=== PATIENT | female | born 1955 | race Caucasian/White ===

== ENCOUNTER 2017-09-29 06:12 | Emergency (ER) | payer OTHER ==
[2017-09-29] MEDS ORDERED: IPRATROPIUM BROM 0.5MG/2.5ML ONE (07:02)
[2017-09-29] MEDS ORDERED: ALBUTEROL 2.5 MG/3 ML NEB SOL ONE ×2 (07:02→08:19)
--- NOTE | 2017-09-29 08:40 | ER ---
Nurse's Notes [facility] Name: Cynthia Piper Age: 62 yrs Sex: Female : 1955 Arrival Date: 09/29/2017 Time: 06:14 Bed 15 Private MD: Diagnosis: Acute bronchitis;Acute upper respiratory infection, unspecified Presentation: 09/29 06:19 Presenting complaint: Patient states: "I have been sick since and it has just tc3 gotten worse. I have had congestion, cough and difficulty breathing. I saw my doctor on and she put me on Levaquin, gave me a shot of Decadron and gave me a RX for Medrol Dose Pack but I cannot take that as it turns me red, I feel like I am on fire and it gives me a bad headache". Transition of care: patient was not received from another setting of care. Onset of symptoms was September 25, 2017. Care prior to arrival: see triage. 06:19 Method Of Arrival: Ambulatory tc3 06:19 Acuity: MILIND 3 tc3 Triage Assessment: 06:25 General: Appears in no apparent distress. well groomed, Behavior is calm, cooperative, tc3 appropriate for age. Pain: Complains of pain in chest Pain currently is 3 out of 10 on a pain scale. Respiratory: Reports shortness of breath at rest on exertion cough that is non-productive, pain with cough Pain is 3 out of 10 on a pain scale. Historical: - Allergies: 06:31 Medrol; tc3 - Home Meds: 06:31 pantoprazole oral oral [Active]; Cholesterol Pill [Active]; [place] 10-325 mg Oral tab 1 tc3 tab twice a day [Active]; - PMHx: 06:31 Asthma; Chronic Back Pain; High Cholesterol; tc3 - PSHx: 06:31 Appendectomy; Hysterectomy; tc3 - Immunization history:: Pneumococcal vaccine is not up to date, Flu vaccine is up to date. - Social history:: Smoking status: Patient/guardian denies using tobacco. Screenin:33 Abuse screen: Denies threats or abuse. Denies injuries from another. Nutritional tc3 screening: No deficits noted. Tuberculosis screening: No symptoms or risk factors identified. Fall Risk None identified. Assessment: 06:34 General: Appears distressed, uncomfortable, Behavior is cooperative, restless. Pain: ar4 Complains of pain in chest and head Pain does not radiate. Pain currently is 3 out of 10 on a pain scale. Quality of pain is described as pressure, Pain began 2-3 days ago. Is continuous, Alleviated by nothing. Aggravated by Pt. reports, "When I cough it makes it worse; /10." Noted to be crying. Neuro: Level of Consciousness is awake, alert, obeys commands, Oriented to person, place, time, situation, Twister Operator are equal bilaterally Moves all extremities. Gait is steady, Speech is normal, Facial symmetry appears normal, Pupils are PERRLA. Cardiovascular: Reports shortness of breath, Denies chest pain, Heart tones S1 S2 present Capillary refill < 3 seconds is brisk in right fingers Patient's skin is warm and dry. Pulses are all present. Rhythm is regular Chest pain is denied. Respiratory: Reports shortness of breath at rest on exertion since last cough that is non-productive, labored breathing since Pt. reports, "This all started last ." pain with cough since last pain with respiration since Pt. reports, "It all started last ." Airway is patent Trachea midline Respiratory effort is even, labored, Respiratory pattern is regular, symmetrical, Breath sounds with wheezes bilaterally. Onset: The symptoms/episode began/occurred Pt. reports, "This all started last and has gotten worse.", the patient has moderate shortness of breath. GI: Abdomen is round non-distended, Bowel sounds present X 4 quads. Abd is soft and non tender X 4 quads. Patient currently denies diarrhea, nausea, vomiting. : No signs and/or symptoms were reported regarding the genitourinary system. EENT: Nares are clear with drainage noted Oral mucosa is moist. Throat is reddened bilaterally with gag reflex present, Reports nasal congestion since Pt. reports, "The drainage is clear and started last .". Derm: Skin is intact, is healthy with good turgor, Skin is dry, Skin is pink, warm \\T\\ dry. Skin temperature is warm. Musculoskeletal: No signs and/or symptoms reported regarding the musculoskeletal system. 07:15 Reassessment: Patient appears in no apparent distress at this time. Patient and/or tw2 family updated on plan of care and expected duration. Pain level reassessed. Patient is alert, oriented x 3, equal unlabored respirations, skin warm/dry/pink. breathing treatment finished at this time. pt still with b/l wheezing noted, pt states "dago had to stop and blow my nose twice". Cardiovascular: Denies chest pain, shortness of breath, Heart tones S1 S2. Respiratory: Airway is patent Respiratory effort is even, unlabored, Respiratory pattern is regular, symmetrical, Breath sounds with wheezes bilaterally. 08:17 Reassessment: Patient appears in no apparent distress at this time. Patient and/or tw2 family updated on plan of care and expected duration. Pain level reassessed. Patient is alert, oriented x 3, equal unlabored respirations, skin warm/dry/pink. 08:58 Reassessment: Patient appears in no apparent distress at this time. No changes from tw2 previously documented assessment. Patient and/or family updated on plan of care and expected duration. Pain level reassessed. Patient is alert, oriented x 3, equal unlabored respirations, skin warm/dry/pink. Vital Signs: 06:23 BP 140 / 92; Pulse 86; Resp 20; Temp 98.2; Pulse Ox 98% ; Weight 71.67 kg; Height 5 ft. tc3 4 in. (162.56 cm); Pain 3/10; 06:54 BP 126 / 88; Pulse 87; Resp 20; Pulse Ox 100% on 7% Nebulizer Mask; tc3 07:25 BP 131 / 76; Pulse 95; Resp 19; Pulse Ox 99% on R/A; tw2 08:16 BP 136 / 84; Pulse 104; Resp 19; Pulse Ox 100% on R/A; tw2 08:57 BP 137 / 87; Pulse 106; Resp 17; Pulse Ox 98% on R/A; tw2 06:23 Body Mass Index 27.12 (71.67 kg, 162.56 cm) tc3 ED Course: 06:14 Patient arrived in ED. ds1 06:25 Latanya Oneill, ADOLFO is Primary Nurse. tc3 06:26 Tremayne Valero PA is PHCP. jr8 06:27 Jose Blanchard MD is Attending Physician. jr8 06:28 Triage completed. tc3 06:33 Arm band placed on. tc3 06:34 Patient has correct armband on for positive identification. Placed in gown. Bed in low tc3 position. Call light in reach. Side rails up X 1. Adult w/ patient. Pulse ox on. NIBP on. Verbal reassurance given. 06:50 Xray in room. tc3 06:52 X-ray completed. Portable x-ray completed in exam room. Patient tolerated procedure jb2 well. 07:03 Report given to ADOLFO Cabral. ar4 07:23 Primary Nurse role handed off by Latanya Oneill RN tw2 07:23 Marianna Angeles RN is Primary Nurse. tw2 07:24 No provider procedures requiring assistance completed. tw2 08:07 Attending Physician role handed off by Jose Blanchard MD jr8 08:07 Shayan Farfan MD is Attending Physician. jr8 09:01 Patient did not have IV access during this emergency room visit. tw2 Administered Medications: 06:44 Drug: Albuterol - atroVENT (3:1) (2.5 mg - 0.5 mg) 3 ml Route: Nebulizer; tc3 08:03 Follow up: Response: No adverse reaction; Wheezing diminished tw2 08:00 Drug: Albuterol 2.5 mg Route: Inhalation; tw2 08:36 Follow up: Response: No adverse reaction; Wheezing diminished tw2 Outcome: 06:47 Attestation : I concur with the documentation of STEVE Gardner. tc3 08:39 Discharge ordered by . jr8 09:01 Discharged to home ambulatory, with significant other. tw2 09:01 Condition: stable 09:01 Discharge instructions given to patient, significant other, Instructed on discharge instructions, follow up and referral plans. medication usage, Demonstrated understanding of instructions, follow-up care, medications, Prescriptions given X 3. 09:02 Patient left the ED. tw2 Signatures: Fidel Rahman jb2 Sujey Ramon Josh, PA PA jr8 Marianna Angeles RN RN tw2 Latanya Oneill RN RN tc3 Patricia Moses arTrue
--- NOTE | 2017-09-29 08:40 | EDPHYS ---
Physician Documentation [facility] Name: Cynthia Piper Age: 62 yrs Sex: Female : 1955 Arrival Date: 09/29/2017 Time: 06:14 Bed 15 Private MD: ED Physician Shayan Farfan HPI: 09/29 07:23 This 62 yrs old Female presents to ER via Ambulatory with complaints of jr8 Cough, Congestion, Breathing Difficulty. 07:23 The patient or guardian reports cough, that is intermittent, described as moderate, jr8 with no sputum. The patient or guardian reports difficulty breathing. Onset: The symptoms/episode began/occurred gradually, 4 day(s) ago. Severity of symptoms: At their worst the symptoms were moderate, in the emergency department the symptoms are unchanged. Modifying factors: The symptoms are alleviated by nothing, the symptoms are aggravated by exertion. Associated signs and symptoms: Pertinent positives: rhinorrhea, sore throat. The patient has not experienced similar symptoms in the past. The patient has been recently seen by a physician:. Patient stated that she started with cough and shortness of breath this past . Saw PCP and given Levaquin and Decadron. Stated that she continues to have problems . Historical: - Allergies: 06:31 Medrol; tc3 - Home Meds: 06:31 pantoprazole oral oral [Active]; Cholesterol Pill [Active]; [place] 10-325 mg Oral tab 1 tc3 tab twice a day [Active]; - PMHx: 06:31 Asthma; Chronic Back Pain; High Cholesterol; tc3 - PSHx: 06:31 Appendectomy; Hysterectomy; tc3 - Immunization history:: Pneumococcal vaccine is not up to date, Flu vaccine is up to date. - Social history:: Smoking status: Patient/guardian denies using tobacco. ROS: 07:23 Eyes: Negative for injury, pain, redness, and discharge, Neck: Negative for injury, jr8 pain, and swelling, Cardiovascular: Negative for chest pain, palpitations, and edema, Abdomen/GI: Negative for abdominal pain, nausea, vomiting, diarrhea, and constipation, Back: Negative for injury and pain, MS/Extremity: Negative for injury and deformity, Skin: Negative for injury, rash, and discoloration, Neuro: Negative for headache, weakness, numbness, tingling, and seizure. 07:23 ENT: Positive for rhinorrhea, sinus congestion, sore throat. 07:23 Respiratory: Positive for cough, with no reported sputum, shortness of breath, wheezing. Exam: 07:23 Eyes: Pupils equal round and reactive to light, extra-ocular motions intact. Lids and jr8 lashes normal. Conjunctiva and sclera are non-icteric and not injected. Cornea within normal limits. Periorbital areas with no swelling, redness, or edema. Neck: Trachea midline, no thyromegaly or masses palpated, and no cervical lymphadenopathy. Supple, full range of motion without nuchal rigidity, or vertebral point tenderness. No Meningismus. Cardiovascular: Regular rate and rhythm with a normal S1 and S2. No gallops, murmurs, or rubs. Normal PMI, no JVD. No pulse deficits. Abdomen/GI: Soft, non-tender, with normal bowel sounds. No distension or tympany. No guarding or rebound. No evidence of tenderness throughout. Back: No spinal tenderness. No costovertebral tenderness. Full range of motion. Skin: Warm, dry with normal turgor. Normal color with no rashes, no lesions, and no evidence of cellulitis. MS/ Extremity: Pulses equal, no cyanosis. Neurovascular intact. Full, normal range of motion. Neuro: Awake and alert, GCS 15, oriented to person, place, time, and situation. Cranial nerves II-XII grossly intact. Motor strength 5/5 in all extremities. Sensory grossly intact. Cerebellar exam normal. Normal gait. 07:23 ENT: Exam is negative for earache, ear discharge, TM abnormalities, nasal discharge, Nose: Nasal mucosa: erythematous, moist, Turbinates: are swollen bilaterally, Mouth: Lips: moist, Oral mucosa: pink and intact, moist, Gums: pink, Tongue: is moist, Posterior pharynx: Airway: patent, Tonsils: are normal in appearance, no enlargement, no erythema, no exudate, no ulcerations, Uvula: midline, non-edematous, no erythema, swelling, is not appreciated, erythema, is not appreciated. 07:23 Respiratory: the patient does not display signs of respiratory distress, Respirations: normal, symetrical, no use of accessory muscles, no grunting, no evidence of nasal flaring, no prolonged exhalations, no pursed lip breathing, no retractions, no shallow respirations, no splinting, no tachypnea, Breath sounds: wheezing: expiratory that is moderate, is heard diffusely. Vital Signs: 06:23 BP 140 / 92; Pulse 86; Resp 20; Temp 98.2; Pulse Ox 98% ; Weight 71.67 kg; Height 5 ft. tc3 4 in. (162.56 cm); Pain 3/10; 06:54 BP 126 / 88; Pulse 87; Resp 20; Pulse Ox 100% on 7% Nebulizer Mask; tc3 07:25 BP 131 / 76; Pulse 95; Resp 19; Pulse Ox 99% on R/A; tw2 08:16 BP 136 / 84; Pulse 104; Resp 19; Pulse Ox 100% on R/A; tw2 08:57 BP 137 / 87; Pulse 106; Resp 17; Pulse Ox 98% on R/A; tw2 06:23 Body Mass Index 27.12 (71.67 kg, 162.56 cm) tc3 MDM: 06:27 Patient medically screened. jr8 08:36 Data reviewed: vital signs, nurses notes, radiologic studies, plain films, and as a jr8 result, I will discharge patient. Data interpreted: Pulse oximetry: on room air is 100 %. Interpretation: normal. Counseling: I had a detailed discussion with the patient and/or guardian regarding: the historical points, exam findings, and any diagnostic results supporting the discharge/admit diagnosis, radiology results, the need for outpatient follow up, a family practitioner, to return to the emergency department if symptoms worsen or persist or if there are any questions or concerns that arise at home. Response to treatment: the patient's symptoms have markedly improved after treatment, and as a result, I will discharge patient. 08:38 ED course: Patient cannot take oral steroids. Will substitute with inhaled steroid for jr8 time being. To f/u with PCP in a few days to insure improvement . 09/29 06:40 Order name: XRAY Chest (1 view) jr8 09/29 08:53 Order name: RAD; Complete Time: 08:54 EDMS Administered Medications: 06:44 Drug: Albuterol - atroVENT (3:1) (2.5 mg - 0.5 mg) 3 ml Route: Nebulizer; tc3 08:03 Follow up: Response: No adverse reaction; Wheezing diminished tw2 08:00 Drug: Albuterol 2.5 mg Route: Inhalation; tw 08:36 Follow up: Response: No adverse reaction; Wheezing diminished tw2 Disposition: 11:00 Co-signature as Attending Physician, Shayan Farfan MD I agree with the assessment and gerry plan of care. Disposition: 09/29/17 08:39 Discharged to Home. Impression: Acute bronchitis, Acute upper respiratory infection, unspecified. - Condition is Stable. - Discharge Instructions: Acute Bronchitis, Upper Respiratory Infection, Adult. - Prescriptions for Albuterol Sulfate 2.5 mg /3 mL (0.083 %) Inhalation Solution for Nebulization - inhale 1 unit by NEBULIZATION route every 8 hours As needed; 1 box. Flovent HFA 110 mcg/actuation Inhalation HFA aerosol inhaler - inhale 2 puff by INHALATION route 2 times per day; 1 Inhaler. - Medication Reconciliation Form, Thank You Letter, Antibiotic Education, Prescription Opioid Use form. - Follow up: Private Physician; When: 2 - 3 days; Reason: If symptoms return, Recheck today's complaints, Continuance of care, Re-evaluation by your physician. - Problem is new. - Symptoms have improved. Signatures: Dispatcher [employer] Shayan Russell MD MD cha Roszak, Josh, PA PA jr8 Marianna Angeles RN RN tw2 Latanya Oneill RN RN tc3
--- NOTE | 2017-09-29 08:53 | RAD REPORT ---
EXAM DESCRIPTION: RAD - Chest Single View - 09/29/2017 6:58 am CLINICAL HISTORY: Cough and congestion. COMPARISON: 08/16/2013 FINDINGS: Portable technique limits examination quality. The lungs are grossly clear. The heart is normal in size. No displaced fractures. IMPRESSION: No acute intrathoracic process suspected.
[2017-09-29 09:07] VITALS: TEMP 98.2
[2017-09-29 09:14] VITALS: BP 137/87; O2SAT 98
== END 2017-09-29 09:02 | disposition home or self-care (01) ==
LOC: ER 06:12
DX: J20.9 Acute bronchitis, unspecified (principal); J06.9 Acute upper respiratory infection, unspecified; E78.00 Pure hypercholesterolemia, unspecified; Z88.8 Allergy status to other drugs, medicaments and biological substances
CPT/HCPCS: 71045; 94640; 99284

== ENCOUNTER 2018-08-23 08:33 | Emergency (ER) | payer OTHER ==
[2018-08-23] MEDS ORDERED: LEVALBUTEROL 1.25 MG/3 ML NEB ONE ×2 (08:59→09:48)
--- NOTE | 2018-08-23 09:15 | RAD REPORT ---
EXAM DESCRIPTION: RAD - Chest Pa And Lat (2 Views) - 08/23/2018 9:04 am CLINICAL HISTORY: Dyspnea, cough and congestion COMPARISON: September 2017 TECHNIQUE: PA and lateral views of the chest were obtained. FINDINGS: The lungs are clear of a focal process. Interstitial markings are prominent but not clearl y different. Heart size is normal and central vasculature is within normal limits. No pleural effu corine or pneumothorax seen. No acute bony finding noted. No aortic abnormality. IMPRESSION: No acute cardiopulmonary process. No significant interval change.
[2018-08-23] MEDS ORDERED: DEXAMETHASONE 4 MG/ML VIAL ONE (09:27)
--- NOTE | 2018-08-23 10:22 | ER ---
Nurse's Notes [facility] Name: Cynthia Piper Age: 63 yrs Sex: Female : 1955 Arrival Date: 08/23/2018 Time: 08:36 Bed 13 Private MD: Ambrocio Shore R Diagnosis: Influenza due to identified novel influenza A virus;Cough Presentation: 08/23 08:43 Presenting complaint: Patient states: hacking cough, congestion and shortness of breath ss that is worse on exertion x 1 week. Transition of care: patient was not received from another setting of care. Onset of symptoms was August 16, 2018. Risk Assessment: Do you want to hurt yourself or someone else? Patient reports no desire to harm self or others. Initial Sepsis Screen: Does the patient meet any 2 criteria? No. Patient's initial sepsis screen is negative. Does the patient have a suspected source of infection? No. Patient's initial sepsis screen is negative. Care prior to arrival: None. 08:43 Method Of Arrival: Ambulatory ss 08:43 Acuity: MILIND 3 ss Triage Assessment: 08:40 Respiratory: the patient has moderate shortness of breath. rb1 Historical: - Allergies: 08:45 No Known Allergies; ss - Home Meds: 08:40 cholesterol pill [Active]; [place] 10-325 mg Oral tab 1 tab twice a day [Active]; rb1 pantoprazole Oral [Active]; - PMHx: 08:45 Asthma; chronic back pain; High Cholesterol; ss - PSHx: 08:45 Appendectomy; Hysterectomy; ss - Immunization history:: Adult Immunizations up to date. - Social history:: Smoking status: Patient/guardian denies using tobacco, the patient reports quitting approximately 40 years ago. - Family history:: not pertinent. - Ebola Screening: : Patient reports travel to an Ebola-affected area in the 21 days before illness onset. Patient reports to have traveled to [place]. - Hospitalizations: : No recent hospitalization is reported. Screenin:40 Fall Risk None identified. rb1 08:45 Abuse screen: Denies threats or abuse. Denies injuries from another. Nutritional ss screening: No deficits noted. Tuberculosis screening: Never had TB. Assessment: 08:40 General: Appears uncomfortable, Behavior is calm, cooperative, Denies fever. Pain: rb1 Complains of pain in back and shoulders Pain currently is 6 out of 10 on a pain scale. Pain began Friday Aggravated by coughing. Neuro: Level of Consciousness is awake, alert, obeys commands, Oriented to person, place, time, situation. Cardiovascular: Capillary refill < 3 seconds is brisk in bilateral fingers Rhythm is regular. Respiratory: Reports shortness of breath on exertion cough that is hacking, pain with cough Airway is patent Respiratory effort is even, unlabored, Respiratory pattern is regular, symmetrical. GI: Reports diarrhea, nausea. : No signs and/or symptoms were reported regarding the genitourinary system. Derm: Skin is pink, warm \T\ dry. Musculoskeletal: Range of motion: intact in all extremities. 09:40 Reassessment: Patient appears in no apparent distress at this time. Patient and/or rb1 family updated on plan of care and expected duration. Pain level reassessed. Patient is alert, oriented x 3, equal unlabored respirations, skin warm/dry/pink. 10:40 Reassessment: Patient appears in no apparent distress at this time. No changes from rb1 previously documented assessment. Vital Signs: 08:42 BP 105 / 77; Pulse 83; Resp 20; Temp 98.2(TE); Pulse Ox 98% on R/A; Weight 72.57 kg; ss Height 5 ft. 4 in. (162.56 cm); Pain 6/10; 09:40 BP 120 / 73; Pulse 74; Resp 20; Pulse Ox 98% on R/A; rb1 10:40 BP 126 / 75; Pulse 85; Resp 19; Pulse Ox 99% on R/A; Pain 4/10; rb1 08:42 Body Mass Index 27.46 (72.57 kg, 162.56 cm) ss ED Course: 08:36 Patient arrived in ED. sb2 08:36 Ricardo Schmitt MD is Attending Physician. rn 08:37 Ambrocio Shore MD is Private Physician. sb2 08:40 Pulse ox on. NIBP on. rb1 08:41 Katherine Jefferson, ADOLFO is Primary Nurse. rb1 08:42 Arm band placed on right wrist. ss 08:44 Triage completed. ss 08:45 Patient has correct armband on for positive identification. Placed in gown. Bed in low ss position. Call light in reach. Side rails up X 1. 08:45 Patient maintains SpO2 saturation greater than 95% on room air. 09:02 XRAY Chest Pa And Lat (2 Views) In Process Unspecified. EDMS 11:00 No provider procedures requiring assistance completed. Patient did not have IV access rb1 during this emergency room visit. Administered Medications: 08:50 Drug: Xopenex 1.25 mg Route: Inhalation; rb1 09:20 Drug: Decadron 10 mg Route: IM; Site: right gluteus; rb1 09:40 Follow up: Response: No adverse reaction rb1 09:42 Drug: Xopenex 1.25 mg Route: Inhalation; rb1 Outcome: 10:21 Discharge ordered by . rn 11:00 Discharged to home ambulatory, with family. rb1 11:00 Condition: stable 11:00 Discharge instructions given to patient, Instructed on discharge instructions, follow up and referral plans. medication usage, Demonstrated understanding of instructions, follow-up care, medications, Prescriptions given X 2. 11:01 Patient left the ED. hb Signatures: Dispatcher [employer] EDW[place] Ricardo Schmitt MD MD rn Smirch, Shelby, RN RN Katherine Jefferson, RN RN rb1 Sissy Will, ADOLFO RN Savanna Dye sb2
--- NOTE | 2018-08-23 10:22 | EDPHYS ---
Physician Documentation [facility] Name: Cynthia Piper Age: 63 yrs Sex: Female : 1955 Arrival Date: 08/23/2018 Time: 08:36 Bed 13 Private MD: Ambrocio Shore R ED Physician Ricardo Schmitt HPI: 08/23 08:45 This 63 yrs old Female presents to ER via Ambulatory with complaints of rn Cough, Shortness Of Breath. 08:45 The patient or guardian reports cough, difficulty breathing, flu symptoms. Onset: The rn symptoms/episode began/occurred 6 day(s) ago. Severity of symptoms: At their worst the symptoms were moderate, in the emergency department the symptoms are unchanged. Modifying factors: The symptoms are alleviated by nothing, the symptoms are aggravated by exertion. The patient has not experienced similar symptoms in the past. The patient has not recently seen a physician. Reports 6 days of cough, sob, fatigue, muscle aches, subjective fever, has been taking zithromax without help, + congestion and runny nose. + former smoker with asthma. No hemoptysis. . Historical: - Allergies: 08:45 No Known Allergies; ss - Home Meds: 08:40 cholesterol pill [Active]; [place] 10-325 mg Oral tab 1 tab twice a day [Active]; rb1 pantoprazole Oral [Active]; - PMHx: 08:45 Asthma; chronic back pain; High Cholesterol; ss - PSHx: 08:45 Appendectomy; Hysterectomy; ss - Immunization history:: Adult Immunizations up to date. - Social history:: Smoking status: Patient/guardian denies using tobacco, the patient reports quitting approximately 40 years ago. - Family history:: not pertinent. - Ebola Screening: : Patient reports travel to an Ebola-affected area in the 21 days before illness onset. Patient reports to have traveled to [place]. - Hospitalizations: : No recent hospitalization is reported. ROS: 08:45 Constitutional: + fever and chills Eyes: Negative for injury, pain, redness, and online journalist, ENT: + congestion and runny nose Neck: Negative for injury, pain, and swelling, Cardiovascular: Negative for chest pain, palpitations, and edema, Respiratory: + cough and sob Abdomen/GI: Negative for abdominal pain, nausea, vomiting, diarrhea, and constipation, MS/Extremity: Negative for injury and deformity, Skin: Negative for injury, rash, and discoloration, Neuro: Negative for headache, numbness, tingling, and seizure. Exam: 08:45 Constitutional: This is a well developed, well nourished patient who is awake, alert rn Head/Face: Normocephalic, atraumatic. Eyes: Pupils equal round and reactive to light, extra-ocular motions intact. Lids and lashes normal. Conjunctiva and sclera are non-icteric and not injected. Cornea within normal limits. Periorbital areas with no swelling, redness, or edema. ENT: + mild pharyngeal erythema, no exudate, no stridor, MMM Neck: Trachea midline, no thyromegaly or masses palpated, and no cervical lymphadenopathy. Supple, full range of motion without nuchal rigidity, or vertebral point tenderness. No Meningismus. Cardiovascular: Regular rate and rhythm, No pulse deficits. Respiratory: + faint exp wheezing, worse in LLL Abdomen/GI: soft, non-tender Skin: Warm, dry with normal turgor. Normal color with no rashes, no lesions, and no evidence of cellulitis. MS/ Extremity: Pulses equal, no cyanosis. Neurovascular intact. Full, normal range of motion. Equal circumference. Neuro: Awake and alert, GCS 15, oriented to person, place, time, and situation. Cranial nerves II-XII grossly intact. Motor strength 5/5 in all extremities. Sensory grossly intact. Vital Signs: 08:42 BP 105 / 77; Pulse 83; Resp 20; Temp 98.2(TE); Pulse Ox 98% on R/A; Weight 72.57 kg; ss Height 5 ft. 4 in. (162.56 cm); Pain 6/10; 09:40 BP 120 / 73; Pulse 74; Resp 20; Pulse Ox 98% on R/A; rb1 10:40 BP 126 / 75; Pulse 85; Resp 19; Pulse Ox 99% on R/A; Pain 4/10; rb1 08:42 Body Mass Index 27.46 (72.57 kg, 162.56 cm) ss MDM: 08:36 Patient medically screened. rn 10:19 Differential Diagnosis: Influenza Upper Respiratory Infection Viral Syndrome Pneumonia. rn Data reviewed: vital signs, nurses notes, lab test result(s), radiologic studies, plain films, and as a result, I will discharge patient. Counseling: I had a detailed discussion with the patient and/or guardian regarding: the historical points, exam findings, and any diagnostic results supporting the discharge/admit diagnosis, lab results, radiology results, the need for outpatient follow up, to return to the emergency department if symptoms worsen or persist or if there are any questions or concerns that arise at home. Response to treatment: the patient's symptoms have mildly improved after treatment, and as a result, I will discharge patient. Special discussion: I discussed with the patient/guardian in detail that at this point there is no indication for admission to the hospital. It is understood, however, that if the symptoms persist or worsen the patient needs to return immediately for re-evaluation. ED course: Normal vitals, no oxygen requirement, normal cxr, + flu, will dc home with tamiflu, inhaler, and return precautions. . 08/23 08:44 Order name: Flu; Complete Time: 09:12 rn 08/23 08:44 Order name: Strep; Complete Time: 09:12 rn 08/23 08:44 Order name: XRAY Chest Pa And Lat (2 Views); Complete Time: 09:18 rn 08/23 09:14 Order name: Throat Culture EDMS Administered Medications: 08:50 Drug: Xopenex 1.25 mg Route: Inhalation; rb1 09:20 Drug: Decadron 10 mg Route: IM; Site: right gluteus; rb1 09:40 Follow up: Response: No adverse reaction rb1 09:42 Drug: Xopenex 1.25 mg Route: Inhalation; rb1 Disposition: 08/23/18 10:21 Discharged to Home. Impression: Influenza due to identified novel influenza A virus, Cough. - Condition is Stable. - Discharge Instructions: Influenza, Adult, Cough, Adult. - Prescriptions for Tamiflu 75 mg Oral Capsule - take 1 capsule by ORAL route every 12 hours for 5 days; 10 capsule. Albuterol Sulfate 90 mcg/actuation - inhale 1-2 puff by INHALATION route every 4-6 hours; 1 Inhaler. - Medication Reconciliation Form, Thank You Letter, Antibiotic Education, Prescription Opioid Use form. - Follow up: Private Physician; When: As needed; Reason: Recheck today's complaints, Re-evaluation by your physician. - Problem is new. - Symptoms have improved. Signatures: Dispatcher [employer] EDDC Ricardo Schmitt MD MD rn Smirch, Shelby, RN RN Katherine Jefferson, ADOLFO RN rb1 Sissy Will RN RN Corrections: (The following items were deleted from the chart) 11:01 10:21 08/23/2018 10:21 Discharged to Home. Impression: Influenza due to identified hb novel influenza A virus; Cough. Condition is Stable. Forms are Medication Reconciliation Form, Thank You Letter, Antibiotic Education, Prescription Opioid Use. Follow up: Private Physician; When: As needed; Reason: Recheck today's complaints, Re-evaluation by your physician. Problem is new. Symptoms have improved. rn
[2018-08-23 11:07] VITALS: TEMP 98.2; O2SAT 98
[2018-08-23 11:08] VITALS: BP 120/73
== END 2018-08-23 11:01 | disposition home or self-care (01) ==
LOC: ER 08:33
DX: J10.1 Influenza due to other identified influenza virus with other respiratory manifestations (principal); J45.909 Unspecified asthma, uncomplicated; E78.00 Pure hypercholesterolemia, unspecified; Z79.891 Long term (current) use of opiate analgesic; Z79.899 Other long term (current) drug therapy; Z87.891 Personal history of nicotine dependence
CPT/HCPCS: 71046; 87070; 87081; 87804; 96372; 99285

== ENCOUNTER 2022-03-07 04:47 | Observation (INO) | payer OTHER ==
[2022-03-07 05:20] LABS: Lymphocytes % 30.4 % (15.3-44.8); MCV 90.6 fL (80-100); MPV 7.6 fL (7.6-11.3); RBC Red Blood Cell Count 4.85 M/uL (3.86-4.86)
[2022-03-07 05:37] LABS: Potassium 4.2 mmol/L (3.5-5.1); Troponin High Sensitivity 3.8 pg/mL (<58.9)
[2022-03-07] MEDS ORDERED: ASPIRIN EC 81 MG TAB PO ONE (05:46)
[2022-03-07] MEDS ORDERED: ASPIRIN 81 MG CHEWABLE TABLET ONE (05:48)
[2022-03-07 06:17] LABS: SARS-CoV-2 Antigen Rapid Res Negative (Negative)
[2022-03-07] MEDS ORDERED: MORPHINE 2 MG/ML SYR ONE (06:35)
[2022-03-07] MEDS ORDERED: ONDANSETRON 4 MG/2 ML VIAL ONE ×2 (06:35→08:02)
[2022-03-07] MEDS ORDERED: CLOPIDOGREL 75 MG TABLET ONE (06:35)
[2022-03-07] MEDS ORDERED: FAMOTIDINE 20 MG/2 ML VIAL IV ONE (06:36)
[2022-03-07] MEDS ORDERED: ENOXAPARIN 80 MG/0.8 ML SQ ONE (06:36)
--- NOTE | 2022-03-07 06:39 | EDPHYS ---
Physician Documentation [facility] Name: yCnthia Piper Age: 66 yrs Sex: Female : 1955 Arrival Date: 03/07/2022 Time: 04:49 Bed 6 Private MD: ED Physician Shayan Farfan HPI: 03/07 06:31 This 66 yrs old Female presents to ER via Ambulatory with complaints of Chest gerry Pain > 30 y/o. 06:31 The patient or guardian reports chest pain that is located primarily in the substernal gerry area, anterior chest wall. Onset: 1 day(s) ago. The pain radiates to the left arm. Associated signs and symptoms: Pertinent positives: dizziness, shortness of breath. The chest pain is described as a pressure. Duration: The patient or guardian reports multiple episodes, that wax and wane. Modifying factors: The symptoms are alleviated by nothing. the symptoms are aggravated by exertion. Severity of pain: At its worst the pain was mild in the emergency department the pain is unchanged. The patient has not experienced similar symptoms in the past. Historical: - Allergies: 05:00 No Known Allergies; kl - Home Meds: 05:00 cholesterol pill [Active]; pantoprazole Oral [Active]; kl 05:43 Requip Oral [Active]; kl - PMHx: 05:00 High Cholesterol; gerd; Asthma; chronic back pain; kl 05:43 restless leg syndrome; kl - PSHx: 05:00 None; kl - Immunization history:: Adult Immunizations up to date. - Social history:: Smoking status: Patient denies any tobacco usage or history of. - Family history:: not pertinent. ROS: 06:31 Constitutional: Negative for fever, chills, and weight loss, Eyes: Negative for injury, gerry pain, redness, and discharge, ENT: Negative for injury, pain, and discharge, Neck: Negative for injury, pain, and swelling, Cardiovascular: Negative for chest pain, palpitations, and edema, Respiratory: Negative for shortness of breath, cough, wheezing, and pleuritic chest pain, Abdomen/GI: Negative for abdominal pain, nausea, vomiting, diarrhea, and constipation, Back: Negative for injury and pain, : Negative for injury, bleeding, discharge, and swelling, MS/Extremity: Negative for injury and deformity, Skin: Negative for injury, rash, and discoloration, Neuro: Negative for headache, weakness, numbness, tingling, and seizure, Psych: Negative for depression, anxiety, suicide ideation, homicidal ideation, and hallucinations, Endocrine: Negative for neck swelling, polydipsia, polyuria, polyphagia, and marked weight changes, Hematologic/Lymphatic: Negative for swollen nodes, abnormal bleeding, and unusual bruising. 06:31 MS/extremity: Positive for injury or acute deformity, swelling, tenderness. Exam: 06:31 Constitutional: This is a well developed, well nourished patient who is awake, alert, gerry and in no acute distress. Head/Face: Normocephalic, atraumatic. Eyes: Pupils equal round and reactive to light, extra-ocular motions intact. Lids and lashes normal. Conjunctiva and sclera are non-icteric and not injected. Cornea within normal limits. Periorbital areas with no swelling, redness, or edema. ENT: Nares patent. No nasal discharge, no septal abnormalities noted. Tympanic membranes are normal and external auditory canals are clear. Oropharynx with no redness, swelling, or masses, exudates, or evidence of obstruction, uvula midline. Mucous membranes moist. Neck: Trachea midline, no thyromegaly or masses palpated, and no cervical lymphadenopathy. Supple, full range of motion without nuchal rigidity, or vertebral point tenderness. No Meningismus. Chest/axilla: Normal chest wall appearance and motion. Nontender with no deformity. No lesions are appreciated. Cardiovascular: Regular rate and rhythm with a normal S1 and S2. No gallops, murmurs, or rubs. Normal PMI, no JVD. No pulse deficits. Respiratory: Lungs have equal breath sounds bilaterally, clear to auscultation and percussion. No rales, rhonchi or wheezes noted. No increased work of breathing, no retractions or nasal flaring. Abdomen/GI: Soft, non-tender, with normal bowel sounds. No distension or tympany. No guarding or rebound. No evidence of tenderness throughout. Back: No spinal tenderness. No costovertebral tenderness. Full range of motion. Skin: Warm, dry with normal turgor. Normal color with no rashes, no lesions, and no evidence of cellulitis. MS/ Extremity: Pulses equal, no cyanosis. Neurovascular intact. Full, normal range of motion. Neuro: Awake and alert, GCS 15, oriented to person, place, time, and situation. Cranial nerves II-XII grossly intact. Motor strength 5/5 in all extremities. Sensory grossly intact. Cerebellar exam normal. Normal gait. Psych: Awake, alert, with orientation to person, place and time. Behavior, mood, and affect are within normal limits. 06:31 ECG was reviewed by the Attending Physician. 08:08 ECG was reviewed by the Attending Physician. [facility] Vital Signs: 04:59 BP 152 / 80; Pulse 67; Resp 22; Pulse Ox 100% ; Weight 74.84 kg (R); Height 5 ft. 4 in. kl (162.56 cm); Pain 7/10; 06:40 Temp 98(TE); kl 06:41 BP 149 / 92; Pulse 88; Resp 16; Pulse Ox 99% on R/A; kl 04:59 Body Mass Index 28.32 (74.84 kg, 162.56 cm) kl MDM: 05:38 Patient medically screened. gerry 06:36 Differential diagnosis: abnormal EKG, acute myocardial infarction, acute pericarditis, gerry anxiety, Cholelithiasis esophagitis, gastritis, hiatal hernia, pancreatitis, peptic ulcer disease, pericarditis, pleurisy, pneumonia, pulmonary embolus, stable angina, thoracic aortic disection, unstable angina. HEART Score: History: Moderately Suspicious (1), ECG: Normal (0), Age: > 45 and < 65 years (1), Risk Factors: > or = 3 Risk factors for atherosclerotic disease (2), [Hypercholesterolemia] [Hypertension] [+ Family HX] [Obesity] Troponin: < or = 1 x Normal Limit (0). The patient was given aspirin in the Emergency Department. The patient's deep vein thrombosis risk score was calculated as follows: Total Score: 0. This patient was found to be at low risk for a deep vein thrombosis by using the Well's assessment criteria. The patient's pulmonary embolism risk score was calculated as follows: Total Score: 0-2 points. This patient was found to be at low risk for a pulmonary embolism by using the Well's assessment criteria. GABRIELA Risk Score: 1 - Three or more CAD risk factors, 1 - ASA use in past 7 days, TOTAL SCORE = 2. Data reviewed: vital signs, nurses notes, lab test result(s), EKG, radiologic studies, plain films. Data interpreted: energy infrastructure engineer: rate is 67 beats/min, rhythm is regular, Pulse oximetry: on room air is 100 %. Test interpretation: by ED physician or midlevel provider: ECG, plain radiologic studies. Counseling: I had a detailed discussion with the patient and/or guardian regarding: the historical points, exam findings, and any diagnostic results supporting the discharge/admit diagnosis, the presence of at least one elevated blood pressure reading (>120/80) during this emergency department visit, lab results, radiology results, the need for further work-up and treatment in the hospital. 03/07 05:05 Order name: Basic Metabolic Panel; Complete Time: 06:30 03/07 05:05 Order name: CBC with Diff; Complete Time: 05:39 03/07 05:05 Order name: Troponin HS; Complete Time: 06:30 03/07 05:39 Order name: SARS RAPID; Complete Time: 06:30 [facility] 03/07 05:47 Order name: NT PRO-BNP; Complete Time: 06:30 [facility] 03/07 05:05 Order name: XRAY Chest (1 view) 03/07 09:57 Order name: Echo with Doppler [facility] 03/07 09:57 Order name: Troponin High Sensitivity [facility] 03/07 09:57 Order name: Lipid Profile [facility] 03/07 09:57 Order name: Lipid Profile [facility] 03/07 05:05 Order name: EKG; Complete Time: 05:05 03/07 05:05 Order name: Cardiac monitoring; Complete Time: 07:21 03/07 05:05 Order name: EKG - Nurse/Tech; Complete Time: 07: 03/07 05:05 Order name: IV Saline Lock; Complete Time: 07:21 03/07 05:05 Order name: Labs collected and sent; Complete Time: 07: 03/07 05:05 Order name: O2 Per Protocol; Complete Time: 07: 03/07 05:05 Order name: O2 Sat Monitoring; Complete Time: 07:21 03/07 07:47 Order name: EKG; Complete Time: 07:47 [facility] 03/07 07:47 Order name: EKG - Nurse/Tech; Complete Time: 08:02 [facility] 03/07 09:57 Order name: Heart Healthy EDCT EC:31 Rate is 61 beats/min. Rhythm is regular. QRS [place] is Normal. HI interval is normal. QRS gerry interval is normal. QT interval is normal. No Q waves. T waves are Normal. No ST changes noted. Clinical impression: NSR w/ Non-specific ST/T Changes and No evidence of ischemia. Interpreted by me. Reviewed by me. 08:08 Rate is 61 beats/min. Rhythm is regular. QRS [place] is Normal. HI interval is normal. QRS gerry interval is normal. QT interval is normal. No Q waves. T waves are Normal. No ST changes noted. Clinical impression: Normal ECG, LVH, and No evidence of ischemia. Interpreted by me. Reviewed by me. Administered Medications: 05:41 Drug: Aspirin 162 mg Route: PO; kl 07:20 Follow up: Response: No adverse reaction bp 05:41 Drug: Aspirin Chewable Tablet 162 mg Route: PO; kl 07:20 Follow up: Response: No adverse reaction bp 06:25 Drug: Zofran (Ondansetron) 4 mg Route: IVP; Site: right antecubital; kl 07:21 Follow up: Response: No adverse reaction bp 06:29 Drug: Pepcid (famotidine) 20 mg Route: IVP; Site: right antecubital; kl 07:21 Follow up: Response: No adverse reaction bp 06:34 Drug: morphine 2 mg Route: IVP; Infused Over: 4 mins; Site: right antecubital; kl 07:21 Follow up: Response: No adverse reaction bp 06:39 Drug: Lovenox (enoxaparin) 1 mg/kg Route: Sub-Q; Site: right upper arm; kl 07:21 Follow up: Response: No adverse reaction bp 06:39 Drug: PlaVIX (clopidogrel) 75 mg Route: PO; kl 07:21 Follow up: Response: No adverse reaction bp 08:00 Drug: morphine 4 mg Route: IVP; Infused Over: 4 mins; Site: right antecubital; bp 15:28 Follow up: Response: Pain is decreased bp 08:00 Drug: Zofran (Ondansetron) 4 mg Route: IVP; Site: right antecubital; bp 15:28 Follow up: Response: No adverse reaction bp Disposition Summary: 03/07/22 06:38 Hospitalization Ordered Hospitalization Status: Observation [facility] Provider: Roma Aguilar cha Condition: Fair gerry Problem: new gerry Symptoms: have improved gerry Bed/Room Type: Standard gerry Location: [facility] ER HOLD(03/07/22 06:43) eb1 Room Assignment: ERHOLD-(03/07/22 06:43) eb1 Diagnosis - Chest pain, unspecified gerry - Dizziness and giddiness gerry - Dyspnea gerry Forms: - Medication Reconciliation Form gerry - SBAR form gerry Signatures: Dispatcher [employer] EDErinn Vanegas RN RN kl Anderson, Corey, MD MD cha Peltier, Brian RN Diana Romero RN RN eb1 Corrections: (The following items were deleted from the chart) 05:47 05:40 PROBNP+C.LAB.BRZ ordered. [facility] EDCT 06:43 06:38 Telemetry/MedSurg (observation) gerry eb1 06:43 06:38 gerry eb1
--- NOTE | 2022-03-07 06:39 | ER ---
Nurse's Notes [facility] Name: Cynthia Piper Age: 66 yrs Sex: Female : 1955 Arrival Date: 03/07/2022 Time: 04:49 Bed 6 Private MD: Diagnosis: Chest pain, unspecified;Dizziness and giddiness;Dyspnea Presentation: 03/07 04:59 Chief complaint: Patient states: chest pain began at 10pm last night reports mild SOB kl left chest wall pain radiates to left arm. Coronavirus screen: Vaccine status: Patient reports receiving the 2nd dose of the covid vaccine. [place]. Ebola Screen: Patient negative for fever greater than or equal to 101.5 degrees Fahrenheit, and additional compatible Ebola Virus Disease symptoms. Initial Sepsis Screen: Does the patient meet any 2 criteria? No. Patient's initial sepsis screen is negative. Does the patient have a suspected source of infection? No. Patient's initial sepsis screen is negative. Risk Assessment: Do you want to hurt yourself or someone else? Patient reports desire/thoughts of hurting themselves or someone else. Provider notified. 04:59 Method Of Arrival: Ambulatory 04:59 Acuity: MILIND 2 kl Historical: - Allergies: 05:00 No Known Allergies; kl - Home Meds: 05:00 cholesterol pill [Active]; pantoprazole Oral [Active]; kl 05:43 Requip Oral [Active]; kl - PMHx: 05:00 High Cholesterol; gerd; Asthma; chronic back pain; kl 05:43 restless leg syndrome; kl - PSHx: 05:00 None; kl - Immunization history:: Adult Immunizations up to date. - Social history:: Smoking status: Patient denies any tobacco usage or history of. - Family history:: not pertinent. Screenin:03 Abuse screen: Denies threats or abuse. Nutritional screening: No deficits noted. Tuberculosis screening: No symptoms or risk factors identified. Fall Risk None identified. Assessment: 05:01 General: Appears uncomfortable, well groomed, well developed, Behavior is calm, kl cooperative. Pain: Complains of pain in left breast Pain radiates to left arm Pain currently is 7 out of 10 on a pain scale. Pain began 9 hours ago. Neuro: No deficits noted. Guillory Agitation-Sedation Scale (RASS): 0 - Alert and Calm. Cardiovascular: Reports chest pain, shortness of breath, Heart tones S1 S2 Rhythm is sinus rhythm. Respiratory: No deficits noted. Airway is patent Respiratory effort is even, unlabored. GI: No deficits noted. No signs and/or symptoms were reported involving the gastrointestinal system. : No deficits noted. No signs and/or symptoms were reported regarding the genitourinary system. Vital Signs: 04:59 BP 152 / 80; Pulse 67; Resp 22; Pulse Ox 100% ; Weight 74.84 kg (R); Height 5 ft. 4 in. kl (162.56 cm); Pain 7/10; 06:40 Temp 98(TE); kl 06:41 BP 149 / 92; Pulse 88; Resp 16; Pulse Ox 99% on R/A; kl 04:59 Body Mass Index 28.32 (74.84 kg, 162.56 cm) ED Course: 04:49 Patient arrived in ED. bp1 04:55 EKG done, by ED staff. kl 05:00 Triage completed. kl 05:03 Inserted saline lock: 20 gauge in right antecubital area, using aseptic technique. oe Blood collected. 05:03 No provider procedures requiring assistance completed. Inserted saline lock: 20 gauge kl in right antecubital area, using aseptic technique. 05:04 Patient has correct armband on for positive identification. Client placed on continuous cardiac and pulse oximetry monitoring. NIBP monitoring applied. engine monitor on. 05:37 Shayan Farfan MD is Attending Physician. gerry 05:48 XRAY Chest (1 view) In Process Unspecified. EDMS 06:38 Roma Aguilar MD is Hospitalizing Provider. gerry 07:07 Juwan Means, ADOLFO is Primary Nurse. bp 15:27 Patient admitted, IV remains in place. Patient maintains SpO2 saturation greater than bp 95% on room air. Administered Medications: 05:41 Drug: Aspirin 162 mg Route: PO; kl 07:20 Follow up: Response: No adverse reaction bp 05:41 Drug: Aspirin Chewable Tablet 162 mg Route: PO; kl 07:20 Follow up: Response: No adverse reaction bp 06:25 Drug: Zofran (Ondansetron) 4 mg Route: IVP; Site: right antecubital; kl 07:21 Follow up: Response: No adverse reaction bp 06:29 Drug: Pepcid (famotidine) 20 mg Route: IVP; Site: right antecubital; kl 07:21 Follow up: Response: No adverse reaction bp 06:34 Drug: morphine 2 mg Route: IVP; Infused Over: 4 mins; Site: right antecubital; kl 07:21 Follow up: Response: No adverse reaction bp 06:39 Drug: Lovenox (enoxaparin) 1 mg/kg Route: Sub-Q; Site: right upper arm; kl 07:21 Follow up: Response: No adverse reaction bp 06:39 Drug: PlaVIX (clopidogrel) 75 mg Route: PO; kl 07:21 Follow up: Response: No adverse reaction bp 08:00 Drug: morphine 4 mg Route: IVP; Infused Over: 4 mins; Site: right antecubital; bp 15:28 Follow up: Response: Pain is decreased bp 08:00 Drug: Zofran (Ondansetron) 4 mg Route: IVP; Site: right antecubital; bp 15:28 Follow up: Response: No adverse reaction bp Outcome: 06:38 Decision to Hospitalize by Provider. gerry 15:27 Admitted to ER Hold. Please see [facility] for further documentation. bp 15:27 Condition: stable 15:27 Instructed on the need for admit. 15:28 Patient left the ED. em1 Signatures: Dispatcher [employer] Erinn De La Cruz RN RN kl Anderson, Corey, MD MD cha Martinez, Eric em1 Clark Laboy Brian, RN RN bp Serena Ibarra bp1
[2022-03-07] MEDS ORDERED: MORPHINE 4 MG/ML SYR ONE ×2 (08:01→13:37)
[2022-03-07] MEDS ORDERED: MORPHINE 4 MG/ML SYR IV PRN (09:52)
[2022-03-07] MEDS ORDERED: ACETAMINOPHEN 500 MG TAB PO PRN (09:52)
[2022-03-07] MEDS: ALPRAZOLAM 0.25 MG TABLET PO SCH ×2 (10:00→14:00)
[2022-03-07] MEDS ORDERED: ALPRAZOLAM 0.25 MG TABLET ONE ×2 (10:31→13:36)
[2022-03-07 11:31] VITALS: BMI 28.3
[2022-03-07 14:01] VITALS: TEMP 98
--- NOTE | 2022-03-07 14:01 | P.SSS ---
Patient History Date of Service: 03/07/22 Reason for admission: Chest pain/panic attack History of Present Illness: Patient is a 66-year-old female who states she was having some diffuse pain. The pain started going to her chest. She normally takes Xanax which alleviates her pain but she does not have any for the last month. She has had anxiety disorder for quite a while. These progressed to panic attacks. She is never had any coronary artery disease. On arrival she had a EKG and troponin which were negative. She was given anxiolytics. Echocardiogram and repeat troponin are negative as well. At this time patient is stable for discharge home with outpatient follow-up with cardiology. She also needs to follow-up with psychiatry for her panic disorders. Allergies amitriptyline HCl [From Elavil] Allergy (Verified 03/07/22 11:35) unk iodine Allergy (Verified 08/16/13 09:16) UNK methylprednisolone [From Medrol] Allergy (Unverified 09/29/17 09:19) Unknown Home Medications: Ascorbic Acid [Vitamin C*] 1 tab PO DAILY 08/16/13 Cholecalciferol (Vitamin D3) [Vitamin D 2,000 Unit Tab] 1 tab PO DAILY 08/16/13 Niacin [Niacor] 1 tab PO DAILY 08/16/13 Ranitidine HCl [Zantac 75] 150 mg PO DAILY 08/16/13 Vitamin E [Vitamin E*] 1 cap PO DAILY 08/16/13 Hydrocodone Bit/Acetaminophen [[place] 10-325 Tablet] 1 each PO Q6H PRN #30 tablet 08/17/13 ALPRAZolam [Alprazolam] 0.5 mg PO BID PRN #30 03/07/22 ALPRAZolam [Xanax*] 0.5 mg PO BEDTIME #30 tab 03/07/22 Aspirin [Aspirin EC 81 MG] 81 mg PO DAILY #30 03/07/22 Atorvastatin Calcium [Lipitor] 40 mg PO DAILY #30 03/07/22 - Past Medical/Surgical History Diabetic: No -: asthma -: reflux -: dvt -: appy -: hyst -: lump removal - Family History Family History: Reviewed- Non-Contributory - Social History Smoking Status: Never smoker Alcohol use: Yes CD- Drugs: No Caffeine use: Yes Place of Residence: Home Review of Systems 10-point ROS is otherwise unremarkable Physical Examination - Vital Signs Temperature: 98 F Blood Pressure: 121/78 Pulse: 67 Respirations: 18 Pulse Ox (%): 94 - Physical Exam General: Alert, In no apparent distress, Oriented x3 HEENT: Atraumatic, PERRLA, Mucous membr. moist/pink, EOMI, Sclerae nonicteric Neck: Supple, 2+ carotid pulse no bruit, No LAD, Without JVD or thyroid abnormality Respiratory: Clear to auscultation bilaterally, Normal air movement Cardiovascular: Regular rate/rhythm, Normal S1 S2 Gastrointestinal: Normal bowel sounds, No tenderness Musculoskeletal: No tenderness Integumentary: No rashes Neurological: Normal gait, Normal speech, Normal strength at 5/5 x4 extr, Normal tone, Normal affect Lymphatics: No axilla or inguinal lymphadenopathy - Studies Laboratory Data (last 24 hrs) 03/07/22 05:03: WBC 9.90, Hgb 14.7, Hct 44.0, Plt Count 362 03/07/22 05:03: Sodium 140, Potassium 4.2, BUN 25 H, Creatinine 0.76, Glucose 94 - Diagnosis (Problem(s)) (1) Panic attack Current Visit: Yes Status: Acute (2) Anxiety disorder Current Visit: Yes Status: Acute (3) Chest pain Current Visit: No Status: Acute Treatment Summary: -High-sensitivity troponin have been negative -Cardiology consultation will need to be obtained as an outpatient -Echocardiogram within normal limits -Most likely related to psychogenic angina/panic attack with resultant chest pain -Lipid profile; LDL and HDL are within normal limits -C[employer]er regarding modifying risk for cardiac disease Patient is doing well and can follow-up with cardiology as an outpatient. Patient will be discharged with anxiolytics aspirin and statin therapy. - Disposition Disposition: ROUTINE DISCHARGE Condition: GOOD Diet: AHA Activity: Fall precautions Critical Care: No Time Spent Managing Pts Care (In Minutes): 45
--- NOTE | 2022-03-07 15:09 | EKG ---
Test Date: 2022-03-07 Test Time: 04:51:22 Logistics Assistant: [place] MEASUREMENT RESULTS: Intervals: Rate: 61 [place]: 128 QRSD: 104 QT: 436 QTc: 438 [place]: P: 30 [place]: 128 QRS: 23 T: 34 INTERPRETIVE STATEMENTS: Normal sinus rhythm RSR' or QR pattern in V1 suggests right ventricular conduction delay Borderline ECG Compared to ECG 08/17/2013 04:54:13 RSR' in V1 or V2 now present Electronically Signed On 03-07-22 15:09:12 CDT by Judson Stephen
[2022-03-07 16:13] VITALS: BP 149/92; O2SAT 99
--- NOTE | 2022-03-07 19:14 | RAD REPORT ---
EXAM DESCRIPTION: RAD - Chest Single View - 03/07/2022 5:47 am CLINICAL HISTORY: The patient is 66 years old and is Female; CHEST PAIN TECHNIQUE: Single view of the chest. COMPARISON: No relevant prior studies available. FINDINGS: Lungs: No pulmonary vascular congestion or consolidation. Pleural space: Unremarkable. No pneumothorax. Heart: Unremarkable. No cardiomegaly. Mediastinum: Unremarkable. Bones/joints: No acute fracture visualized. Upper abdomen: No free air in the visualized upper abdomen. IMPRESSION: No acute cardiopulmonary process identified. Electronically signed by: Lissett Boyer MD 03/07/2022 5:58 AM CDT Due to temporary technical issues with the PACS/Fluency reporting system, reports are being signed by the in house radiologists without review as a courtesy to insure prompt reporting. The interpreting radiologist is fully responsible for the content of the report.
[2022-03-08] MEDS ORDERED: ASPIRIN EC 81 MG TAB PO SCH (09:00)
[2022-03-08] MEDS ORDERED: ENOXAPARIN 40 MG/0.4 ML SQ SCH (09:00)
--- NOTE | 2022-03-09 15:25 | EKG ---
Test Date: 2022-03-07 Test Time: 07:59:52 Supervisor [employer]: BP MEASUREMENT RESULTS: Intervals: Rate: 61 DC: 132 QRSD: 104 QT: 446 QTc: 448 [place]: P: 25 DC: 132 QRS: 16 T: 17 INTERPRETIVE STATEMENTS: Normal sinus rhythm RSR' or QR pattern in V1 suggests right ventricular conduction delay Minimal voltage criteria for LVH, may be normal variant Borderline ECG Compared to ECG 03/07/2022 04:51:22 Left ventricular hypertrophy now present Electronically Signed On 03-09-22 15:23:00 CDT by Judson Stephen
== END 2022-03-07 15:29 | disposition home or self-care (01) ==
LOC: ER 04:47 → ERHOLD 09:52
PROVIDERS: ADMIT Hospitalist; ATTEND Hospitalist
DX: R07.9 Chest pain, unspecified (principal); F41.0 Panic disorder [episodic paroxysmal anxiety]; F41.9 Anxiety disorder, unspecified; J45.909 Unspecified asthma, uncomplicated; K21.9 Gastro-esophageal reflux disease without esophagitis; R06.00 Dyspnea, unspecified; E78.00 Pure hypercholesterolemia, unspecified; G25.81 Restless legs syndrome; M54.9 Dorsalgia, unspecified; G89.29 Other chronic pain; R42 Dizziness and giddiness; Z86.718 Personal history of other venous thrombosis and embolism; Z79.82 Long term (current) use of aspirin; Z79.899 Other long term (current) drug therapy; Z88.8 Allergy status to other drugs, medicaments and biological substances; Z91.041 Radiographic dye allergy status; Z90.710 Acquired absence of both cervix and uterus; Z20.822 Contact with and (suspected) exposure to COVID-19
CPT/HCPCS: 93005 ×2; 85025; 80048; 36415; 80061; 84484 ×2; 83880; 71045; 96375; 96372; 96374; 99285; 87811; J2270; J2405 ×2; G0378 ×2

== ENCOUNTER 2022-04-11 01:52 | Emergency (ER) | payer OTHER ==
[2022-04-11] MEDS ORDERED: KETOROLAC 30 MG/ML INJ ONE (02:31)
[2022-04-11 02:44] LABS: Absolute Lymphocytes (CBC) 3.8 K/uL (0.7-4.9); Hematocrit 42.8 % (36.0-45.0); Lymphocytes % 47.2 % (15.3-44.8); MCV 89.1 fL (80-100); MPV 7.6 fL (7.6-11.3); RBC Red Blood Cell Count 4.81 M/uL (3.86-4.86)
[2022-04-11 02:46] LABS: Protime INR 0.96
[2022-04-11 03:01] LABS: Albumin 4.1 g/dL (3.4-5.0); Bilirubin Direct 0.1 mg/dL (0-0.2); Bilirubin Total 0.6 mg/dL (0.2-1.0); Potassium 3.8 mmol/L (3.5-5.1); Protein, Total 7.4 g/dL (6.4-8.2); Troponin High Sensitivity 8.7 pg/mL (<58.9)
[2022-04-11] MEDS ORDERED: HYDROMORPHONE HCL 1 MG/ML INJ ONE (03:06)
--- NOTE | 2022-04-11 03:08 | EDPHYS ---
Physician Documentation [facility] Name: Cynthia Piper Age: 66 yrs Sex: Female : 1955 Arrival Date: 04/11/2022 Time: 01:53 Bed 5 Private MD: ED Physician Mariah Whitley HPI: 04/11 02:32 This 66 yrs old Female presents to ER via Unassigned with complaints of Chest Pain, Arm sp3 Pain, Numbness Of Hand. 02:32 66-year-old female with no significant past medical history presents with right-sided sp3 chest wall pain. She states that she was cleaning her bed and may have reached hard and pulled a muscle. She states that she was here a few weeks back for the same thing on the left side for which she was seen and discharged to cardiology for follow-up. She has a stress test scheduled for next week. Currently her pain is worse on movement and hurts when you push on it. She denies shortness of breath, back pain, neck pain, jaw pain, left arm pain, syncope, near syncope, any other worrisome symptoms on ROS at this time. Pain is sharp and started earlier today and has continued since then.. Historical: - Allergies: 01:55 Elvil; jb4 - Home Meds: 01:55 cholesterol pill [Active]; pantoprazole Oral [Active]; Requip Oral [Active]; jb4 - PMHx: 01:55 chronic back pain; GERD; Asthma; High Cholesterol; restless leg syndrome; jb4 - PSHx: 01:55 hysterectomy; Appendectomy; jb4 - Immunization history:: Adult Immunizations up to date. - Social history:: Smoking status: unknown. ROS: 02:34 Constitutional: Negative for fever, chills, and weight loss, Eyes: Negative for injury, sp3 pain, redness, and discharge, ENT: Negative for injury, pain, and discharge, Neck: Negative for injury, pain, and swelling, Respiratory: Negative for shortness of breath, cough, wheezing, and pleuritic chest pain, Abdomen/GI: Negative for abdominal pain, nausea, vomiting, diarrhea, and constipation, Back: Negative for injury and pain, Skin: Negative for injury, rash, and discoloration, Neuro: Negative for headache, weakness, numbness, tingling, and seizure, Psych: Negative for depression, anxiety, suicide ideation, homicidal ideation, and hallucinations, Allergy/Immunology: Negative for hives, rash, and allergies, Endocrine: Negative for neck swelling, polydipsia, polyuria, polyphagia, and marked weight changes, Hematologic/Lymphatic: Negative for swollen nodes, abnormal bleeding, and unusual bruising. 02:34 All other systems are negative. Exam: 02:34 Constitutional: This is a well developed, well nourished patient who is awake, alert, sp3 and in no acute distress. Head/Face: Normocephalic, atraumatic. Eyes: Pupils equal round and reactive to light, extra-ocular motions intact. Lids and lashes normal. Conjunctiva and sclera are non-icteric and not injected. Cornea within normal limits. Periorbital areas with no swelling, redness, or edema. Neck: Trachea midline, no thyromegaly or masses palpated, and no cervical lymphadenopathy. Supple, full range of motion without nuchal rigidity, or vertebral point tenderness. No Meningismus. Chest/axilla: Normal chest wall appearance and motion. Nontender with no deformity. No lesions are appreciated. Cardiovascular: Regular rate and rhythm with a normal S1 and S2. No gallops, murmurs, or rubs. Normal PMI, no JVD. No pulse deficits. Respiratory: Lungs have equal breath sounds bilaterally, clear to auscultation and percussion. No rales, rhonchi or wheezes noted. No increased work of breathing, no retractions or nasal flaring. Abdomen/GI: Soft, non-tender, with normal bowel sounds. No distension or tympany. No guarding or rebound. No evidence of tenderness throughout. Skin: Warm, dry with normal turgor. Normal color with no rashes, no lesions, and no evidence of cellulitis. Neuro: Awake and alert, GCS 15, oriented to person, place, time, and situation. Cranial nerves II-XII grossly intact. Motor strength 5/5 in all extremities. Sensory grossly intact. Cerebellar exam normal. Normal gait. Psych: Awake, alert, with orientation to person, place and time. Behavior, mood, and affect are within normal limits. 02:34 Musculoskeletal/extremity: Patient has pain to palpation in the anterior right pectoralis pain on rotator cuff area palpation. Breath sounds are equal and cardiopulmonary exam is otherwise normal.. Vital Signs: 02:33 BP 120 / 61; Pulse 74; Resp 20; Temp 98.5; Pulse Ox 100% on R/A; Weight 74.84 kg; kd3 Height 5 ft. 4 in. (162.56 cm); Pain 9/10; 03:04 BP 121 / 89; Pulse 70; Resp 22; Pulse Ox 100% on R/A; jb4 03:14 BP 128 / 68; Pulse 69; Resp 19; Pulse Ox 99% on R/A; kd3 02:33 Body Mass Index 28.32 (74.84 kg, 162.56 cm) kd3 MDM: 02:32 Patient medically screened. sp3 02:35 Data reviewed: vital signs, nurses notes. ED course: 66-year-old female with likely sp3 musculoskeletal right-sided anterior chest wall pain. Work-up will include chest x-ray, EKG, laboratory values. Toradol IV was also given. If work-up is negative we will discharge patient home to existing cardiology follow-up and stress test for next week. I am not highly suspicious for acute coronary syndrome, pulmonary embolism, thoracic aortic aneurysm or dissection, pneumonia, gastritis, sepsis, or any other critical findings at this time.. 03:06 ED course: It is improved with the ketorolac that was given earlier. We will give 1 sp3 dose of Dilaudid IV to further improve pain. EKG, chest x-ray, laboratory values are reviewed and demonstrate no concerning findings. Will discharge patient home and she will continue her follow-up with cardiology as already scheduled.. 04/11 01:56 Order name: Basic Metabolic Panel; Complete Time: 03:03 sp3 04/11 01:56 Order name: CBC with Diff sp3 04/11 01:56 Order name: LFT's; Complete Time: 03:03 sp3 04/11 01:56 Order name: NT PRO-BNP; Complete Time: 03:03 sp3 04/11 01:56 Order name: PT-INR; Complete Time: 02:49 3 04/11 01:56 Order name: Troponin HS; Complete Time: 03:03 sp3 04/11 01:56 Order name: XRAY Chest (1 view) sp3 04/11 01:56 Order name: EKG; Complete Time: 01:58 3 04/11 01:56 Order name: Cardiac monitoring; Complete Time: 02:17 sp3 04/11 01:56 Order name: EKG - Nurse/Tech; Complete Time: 02:17 sp3 04/11 01:56 Order name: IV Saline Lock; Complete Time: 02:17 sp3 04/11 03:11 Order name: Manual Differential EDMS 04/11 01:56 Order name: Labs collected and sent; Complete Time: 02:17 sp3 04/11 01:56 Order name: O2 Per Protocol; Complete Time: 02: sp3 04/11 01:56 Order name: O2 Sat Monitoring; Complete Time: 02:17 sp3 Administered Medications: 02:33 Drug: Ketorolac 30 mg Route: IVP; Site: right antecubital; kd3 03:10 Follow up: Response: No adverse reaction; Pain is decreased kd3 03:10 Drug: Dilaudid (HYDROmorphone) 1 mg Route: IVP; Site: right antecubital; kd3 03:10 Follow up: Response: No adverse reaction; Pain is decreased kd3 03:15 Follow up: Response: Pain is decreased; RASS: Alert and Calm (0) kd3 Disposition Summary: 04/11/22 03:07 Discharge Ordered Location: Home sp3 Condition: Stable sp3 Diagnosis - CHEST WALL PAIN sp3 Followup: sp3 - With: Private Physician - When: Upon discharge from the Emergency Department - Reason: Recheck today's complaints Discharge Instructions: - Discharge Summary Sheet sp3 - Chest Wall Pain sp3 Forms: - Medication Reconciliation Form sp3 - Thank You Letter sp3 - Antibiotic Education sp3 - Prescription Opioid Use sp3 Prescriptions: - Tramadol 50 mg Oral Tablet - take 1 tablet by ORAL route every 8 hours as needed; 12 tablet; Refills: 0, sp3 Product Selection Permitted Signatures: [facility] Anatoly Banks RN RN jb4 Mariah Whitley MD MD sp3 Lillian Higgins RN RN kd3
--- NOTE | 2022-04-11 03:08 | ER ---
Nurse's Notes [facility] Name: Cynthia Piper Age: 66 yrs Sex: Female : 1955 Arrival Date: 04/11/2022 Time: 01:53 Bed 5 Private MD: Diagnosis: CHEST WALL PAIN Presentation: 04/11 01:55 Chief complaint: Patient states: My chest started hurting around noon yesterday, and jb4 has worsened since. It is on the right side of my chest radiating to my right arm and shoulder. Both my hands are numb. I tried to ignore it by working around the house. 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 01:55 Coronavirus screen: At this time, the client does not indicate any symptoms associated jb4 with coronavirus-19. 02:34 Ebola Screen: No symptoms or risks identified at this time. Initial Sepsis Screen: Does kd3 the patient meet any 2 criteria? No. Patient's initial sepsis screen is negative. Does the patient have a suspected source of infection? No. Patient's initial sepsis screen is negative. Risk Assessment: Do you want to hurt yourself or someone else? Patient reports no desire to harm self or others. Onset of symptoms was April 11, 2022. 02:34 Method Of Arrival: Wheelchair kd3 02:34 Acuity: MILIND 3 kd3 Triage Assessment: 02:34 General: Appears uncomfortable, Behavior is calm, cooperative. Neuro: Level of kd3 Consciousness is awake, alert, obeys commands. Neuro: Level of Consciousness is awake, alert, obeys commands, Oriented to person, place, time, situation. Cardiovascular: Patient's skin is warm and dry. Respiratory: Airway is patent Trachea midline Respiratory effort is even, unlabored, Respiratory pattern is regular, symmetrical. Historical: - Allergies: 01:55 Elvil; jb4 - Home Meds: :55 cholesterol pill [Active]; pantoprazole Oral [Active]; Requip Oral [Active]; jb4 - PMHx: 01:55 chronic back pain; GERD; Asthma; High Cholesterol; restless leg syndrome; jb4 - PSHx: 01:55 hysterectomy; Appendectomy; jb4 - Immunization history:: Adult Immunizations up to date. - Social history:: Smoking status: unknown. Screenin:10 Abuse screen: Denies threats or abuse. Denies injuries from another. Nutritional kd3 screening: No deficits noted. Tuberculosis screening: No symptoms or risk factors identified. Fall Risk None identified. IV access (20 points). Assessment: 01:55 General: Appears in no apparent distress. uncomfortable, Behavior is calm, cooperative, jb4 appropriate for age. Pain: Complains of pain in chest Pain radiates to right arm, right shoulder Pain currently is 9 out of 10 on a pain scale. Quality of pain is described as sharp, Pain began 1 day ago. Neuro: Level of Consciousness is awake, alert, obeys commands, Oriented to. Cardiovascular: Patient's skin is warm and dry. Respiratory: Airway is patent Respiratory effort is even, unlabored, Respiratory pattern is regular, symmetrical. GI: No signs and/or symptoms were reported involving the gastrointestinal system. : No signs and/or symptoms were reported regarding the genitourinary system. EENT: No signs and/or symptoms were reported regarding the EENT system. Derm: Skin is intact, Skin is pink, warm \T\ dry. Musculoskeletal: Circulation, motion, and sensation intact. Range of motion: intact in all extremities. 03:04 Reassessment: Patient appears in no apparent distress at this time. Patient and/or jb4 family updated on plan of care and expected duration. Pain level reassessed. Patient is alert, oriented x 3, equal unlabored respirations, skin warm/dry/pink. Vital Signs: 02:33 BP 120 / 61; Pulse 74; Resp 20; Temp 98.5; Pulse Ox 100% on R/A; Weight 74.84 kg; kd3 Height 5 ft. 4 in. (162.56 cm); Pain 9/10; 03:04 BP 121 / 89; Pulse 70; Resp 22; Pulse Ox 100% on R/A; jb4 03:14 BP 128 / 68; Pulse 69; Resp 19; Pulse Ox 99% on R/A; kd3 02:33 Body Mass Index 28.32 (74.84 kg, 162.56 cm) kd3 ED Course: 01:53 Patient arrived in ED. ja2 01:55 Mariah Whitley MD is Attending Physician. sp3 02:10 XRAY Chest (1 view) In Process Unspecified. EDMS 02:16 Gisela, Lillian, RN is Primary Nurse. kd3 02:17 Basic Metabolic Panel Sent. kd3 02:17 CBC with Diff Sent. kd3 02:17 LFT's Sent. kd3 02:17 NT PRO-BNP Sent. kd3 02:17 PT-INR Sent. kd3 02:17 Troponin HS Sent. kd3 02:34 Arm band placed on right wrist. kd3 02:35 Triage completed. kd3 03:11 No provider procedures requiring assistance completed. IV discontinued, intact, kd3 bleeding controlled, No redness/swelling at site. Pressure dressing applied. Patient maintains SpO2 saturation greater than 95% on room air. 03:11 Patient has correct armband on for positive identification. Client placed on continuous kd3 cardiac and pulse oximetry monitoring. NIBP monitoring applied. Administered Medications: 02:33 Drug: Ketorolac 30 mg Route: IVP; Site: right antecubital; kd3 03:10 Follow up: Response: No adverse reaction; Pain is decreased kd3 03:10 Drug: Dilaudid (HYDROmorphone) 1 mg Route: IVP; Site: right antecubital; kd3 03:10 Follow up: Response: No adverse reaction; Pain is decreased kd3 03:15 Follow up: Response: Pain is decreased; RASS: Alert and Calm (0) kd3 Medication: 03:11 VIS not applicable for this client. kd3 Outcome: 03:07 Discharge ordered by . sp3 03:11 Discharged to home ambulatory. kd3 03:11 Condition: stable 03:11 Discharge instructions given to patient, family, Instructed on discharge instructions, follow up and referral plans. medication usage, Demonstrated understanding of instructions, follow-up care, medications, Prescriptions given X 1. 03:15 Patient left the ED. kd3 Signatures: Dispatcher [employer] EDMS Anatoly Kothari RN RN jb4 Mariah Whitley MD MD sp3 Josephine Lopez Kyli, RN RN kd3
[2022-04-11 04:23] LABS: Blood Morphology Comment NOT SEEN (NOT SEEN); Platelet Estimate ADEQ
--- NOTE | 2022-04-11 08:27 | EKG ---
Test Date: 2022-04-11 Test Time: 02:04:14 Clerical Manager: QUITA MEASUREMENT RESULTS: Intervals: Rate: 81 [place]: 136 QRSD: 88 QT: 414 QTc: 480 [place]: P: 35 [place]: 136 QRS: 6 T: 33 INTERPRETIVE STATEMENTS: Normal sinus rhythm RSR' or QR pattern in V1 suggests right ventricular conduction delay Minimal voltage criteria for LVH, may be normal variant Nonspecific ST abnormality Abnormal ECG Compared to ECG 03/07/2022 07:59:52 ST (T wave) deviation now present Electronically Signed On 04-11-22 08:26:29 CDT by Jeyson Sheets
--- NOTE | 2022-04-11 11:21 | RAD REPORT ---
EXAM DESCRIPTION: RAD - Chest Single View - 04/11/2022 2:08 am CLINICAL HISTORY: 66 years, Female, CHEST PAIN COMPARISON: 03/07/2022 FINDINGS: Single view of the chest was obtained portable. Prior films were compared. External EKG le ads within the [id number] limits diagnosis. The cardiomediastinal silhouette demonstrate to be unr emarkable. The heart is not enlarged. The thoracic aorta is unremarkable. The pulmonary vasculature i s normal distribution. Costophrenic angles are sharp. No areas of consolidation or masses are seen. The rest of the soft tissue and bony structures demonstrate to be unremarkable. IMPRESSION: No acute cardiopulmonary process identified. Electronically signed by: Ernesto Will MD 04/11/2022 2:46 AM CDT Due to temporary technical issues with the PACS/Fluency reporting system, reports are being signed by the in house radiologists without review as a courtesy to insure prompt reporting. The interpreting radiologist is fully responsible for the content of the report.
[2022-04-12 15:26] VITALS: TEMP 98.5
[2022-04-12 15:29] VITALS: BP 128/68; O2SAT 99
== END 2022-04-11 03:15 | disposition home or self-care (01) ==
LOC: ER 01:52
DX: R07.89 Other chest pain (principal); E78.00 Pure hypercholesterolemia, unspecified; Z88.8 Allergy status to other drugs, medicaments and biological substances
CPT/HCPCS: 93005; 85025; 80048; 36415; 85610; 80076; 84484; 83880; 71045; 96375; 96374; 99284; J1170

== ENCOUNTER 2023-01-01 06:36 | Emergency (ER) | payer OTHER, MEDICARE ==
[2023-01-01 08:05] LABS: Absolute Lymphocytes (CBC) 2.3 K/uL (0.7-4.9); Hematocrit 40.1 % (36.0-45.0); Lymphocytes % 34.4 % (15.3-44.8); MCV 90.4 fL (80-100); MPV 7.4 fL (7.6-11.3); RBC Red Blood Cell Count 4.43 M/uL (3.86-4.86)
[2023-01-01] MEDS ORDERED: NA CHLORIDE 0.9% 500 ML ONE (08:08)
[2023-01-01 08:24] LABS: Albumin 3.8 g/dL (3.4-5.0); Bilirubin Total 0.6 mg/dL (0.2-1.0); Potassium 3.5 mEq/L (3.5-5.1); Protein, Total 6.9 g/dL (6.4-8.2)
--- NOTE | 2023-01-01 08:37 | RAD REPORT ---
EXAM DESCRIPTION: US - Extrem Venous W Compress South - 01/01/2023 8:26 am CLINICAL HISTORY: PAIN Bilateral leg edema and swelling. COMPARISON: No comparisons TECHNIQUE: Real-time sonographic interrogation of the left and right lower extremity deep venous sys tems was performed. FINDINGS: Normal compressibility, flow augmentation, phasic flow and spontaneous flow is identified in both the left and right lower extremity deep venous systems. 3.2 x 2.0 cm left popliteal cyst. Add itional 4.5 cm medial left popliteal cyst. IMPRESSION: No sonographic evidence of left or right lower extremity deep venous thrombosis.
--- NOTE | 2023-01-01 08:38 | RAD REPORT ---
EXAM DESCRIPTION: RAD - Knee Left 3 View - 01/01/2023 8:32 am CLINICAL HISTORY: PAIN COMPARISON: Extrem Venous W Compress South dated 01/01/2023 FINDINGS: Moderate suprapatellar joint effusion. Moderate tricompartmental osteoarthritic changes. N o acute fracture or dislocation seen. If pain persists, nonemergent MRI imaging of the knee would be recommended for further detailed assessment.
[2023-01-01 09:02] LABS: Protime INR 0.97
--- NOTE | 2023-01-01 09:05 | ER ---
Nurse's Notes [facility] Name: Cynthia Piper Age: 67 yrs Sex: Female : 1955 Arrival Date: 01/01/2023 Time: 06:36 Bed 20 Private MD: Diagnosis: Effusion, left knee;Unspecified internal derangement of left knee-MENISCUS;Pain in left knee Presentation: 01/01 06:53 Chief complaint: Patient states: LEFT KNEE PAIN AND SWELLING X3 DAYS. NOT SURE IF ITS A jj7 BLOOD CLOT. Coronavirus screen: At this time, the client does not indicate any symptoms associated with coronavirus-19. Ebola Screen: No symptoms or risks identified at this time. Initial Sepsis Screen: Does the patient meet any 2 criteria? No. Patient's initial sepsis screen is negative. Does the patient have a suspected source of infection? No. Patient's initial sepsis screen is negative. Risk Assessment: Do you want to hurt yourself or someone else? Patient reports no desire to harm self or others. 06:53 Method Of Arrival: Ambulatory [facility] 06:53 Acuity: MILIND 3 jj7 Triage Assessment: 06:56 General: Appears in no apparent distress. uncomfortable, Behavior is calm, cooperative, jj7 appropriate for age. Pain: Complains of pain in left knee. Historical: - Allergies: 06:56 Elvil; jj7 - PMHx: 06:56 Asthma; chronic back pain; GERD; restless leg syndrome; High Cholesterol; jj7 - PSHx: 06:56 Appendectomy; hysterectomy; jj7 - Immunization history:: Adult Immunizations up to date, Client reports receiving the 2nd dose of the Covid vaccine. - Social history:: Smoking status: Patient denies any tobacco usage or history of. Patient/guardian denies using alcohol, street drugs. - Family history:: not pertinent. Screenin:05 [facility] ED Fall Risk Assessment (Adult) History of falling in the last 3 months, ss including since admission No falls in past 3 months (0 pts). Abuse screen: Denies threats or abuse. Denies injuries from another. Nutritional screening: No deficits noted. Tuberculosis screening: Never had TB. Assessment: 08:00 General: Appears uncomfortable, Behavior is calm, cooperative. Pain: Complains of pain ss in left knee Pain currently is 6 out of 10 on a pain scale. at worst was 8 out of 10 on a pain scale. Quality of pain is described as tender, Is continuous. Neuro: Level of Consciousness is awake, alert, obeys commands, Oriented to person, place, time, situation. Cardiovascular: Pulses are palpable in right radial artery and left radial artery. Respiratory: Airway is patent Respiratory effort is even, unlabored, Respiratory pattern is regular, symmetrical. EENT: Oral mucosa is moist. Derm: Skin is intact, is healthy with good turgor, Skin is dry, Skin is pink, warm \T\ dry. normal. Musculoskeletal: Swelling present in left knee. 08:04 Reassessment: Pt to US at this time VIA wheelchair. ss 08:38 Reassessment: Dr. Farfan notified that patient is having pain. No further orders or ss interventions given at this time. 08:55 Reassessment: Dr. Farfan at bedside assessing patient and discussing plan of care. ss 09:20 Reassessment: Patient appears in no apparent distress at this time. Patient and/or nj1 family updated on plan of care and expected duration. Pain level reassessed. Patient is alert, oriented x 3, equal unlabored respirations, skin warm/dry/pink. Pain: Complains of pain in left knee Pain currently is 5 out of 10 on a pain scale. at worst was 8 out of 10 on a pain scale. Alleviated by rest, Aggravated by exercise, increased activity, repositioning, weight bearing. 10:15 Reassessment: Patient appears in no apparent distress at this time. Patient and/or nj1 family updated on plan of care and expected duration. Pain level reassessed. Patient is alert, oriented x 3, equal unlabored respirations, skin warm/dry/pink. Patient denies pain at this time. Patient states feeling better. Vital Signs: 06:53 BP 132 / 84; Pulse 75; Resp 19; Temp 97.3; Pulse Ox 100% ; Weight 77.11 kg; Height 5 jj7 ft. 4 in. ; Pain 6/10; 09:51 BP 140 / 83; Pulse 71; Resp 17; Temp 97.8; Pulse Ox 98% on R/A; bc6 06:53 Body Mass Index 29.18 (77.11 kg, 162.56 cm) jj7 06:53 Pain Scale: Adult jj7 ED Course: 06:39 Patient arrived in ED. ja2 06:56 Triage completed. jj7 06:56 Arm band placed on right wrist. jj7 06:58 Shayan Farfan MD is Attending Physician. [facility] 07:54 Inserted saline lock: 22 gauge in left antecubital area, using aseptic technique. Blood ss collected. 08:04 Bee Lucas, RN is Primary Nurse. ss 08:05 Patient has correct armband on for positive identification. ss 08:05 No provider procedures requiring assistance completed. ss 08:27 US Extremity Venous W Compression South In Process Unspecified. EDMS 08:33 Knee Left 3 View XRAY In Process Unspecified. EDMS 09:05 Eloy Ricci MD is Referral Physician. gerry 09:20 Knee immobilizer applied on left knee. nj1 10:15 IV discontinued, intact, bleeding controlled. nj1 Administered Medications: 08:38 Drug: NS 0.9% IV 500 ml Route: IV; Rate: bolus; Site: left antecubital; ss 10:15 Follow up: Response: No adverse reaction; IV Status: Completed infusion; IV Intake: nj1 500ml 09:19 Drug: Ketorolac IVP 30 mg Route: IVP; Site: left antecubital; nj1 10:15 Follow up: Response: No adverse reaction; Pain is decreased nj1 09:19 Drug: [place] PO 10 mg-325 mg 1 tabs Route: PO; nj1 10:15 Follow up: Response: No adverse reaction; Pain is decreased nj1 Medication: 08:05 VIS not applicable for this client. ss Intake: 10:15 IV: 500ml; Total: 500ml. nj1 Outcome: 09:05 Discharge ordered by . gerry 09:34 Discharged to home via wheelchair, with family. nj1 09:34 Condition: stable 09:34 Discharge instructions given to patient, family, Instructed on discharge instructions, follow up and referral plans. medication usage, Demonstrated understanding of instructions, follow-up care, medications, Knee immobilizer Prescriptions given X 2. 10:25 Patient left the ED. nj1 Signatures: Dispatcher [employer] EDRI Shayan Farfan MD MD cha Blanchard, Shelby, RN RN Josephine Barros 2 Manisha Ritchie RN RN jj7 Marie Perez bc6 Erendira Kemp, RN RN nj1
--- NOTE | 2023-01-01 09:05 | EDPHYS ---
Physician Documentation [facility] Name: Cynthia Piper Age: 67 yrs Sex: Female : 1955 Arrival Date: 01/01/2023 Time: 06:36 Bed 20 Private MD: ED Physician Shayan Farfan HPI: 01/01 08:57 This 67 yrs old Female presents to ER via Ambulatory with complaints of Knee gerry Pain, Knee Swelling. 08:57 The patient presents with decreased range of motion, pain, swelling. The complaints gerry affect the left knee. Context: resulted from an unknown cause. Onset: The symptoms/episode began/occurred 3 day(s) ago. Modifying factors: The symptoms are alleviated by elevating leg, remaining still, the symptoms are aggravated by movement, weight bearing, bending knee. Associated signs and symptoms: The patient has no apparent associated signs or symptoms. Treatment prior to arrival includes: no previous treatment. Severity of symptoms: At their worst the symptoms were mild, moderate, in the emergency department the symptoms are unchanged. The patient has not experienced similar symptoms in the past. Historical: - Allergies: 06:56 Elvil; jj7 - PMHx: 06:56 Asthma; chronic back pain; GERD; restless leg syndrome; High Cholesterol; jj7 - PSHx: 06:56 Appendectomy; hysterectomy; jj7 - Immunization history:: Adult Immunizations up to date, Client reports receiving the 2nd dose of the Covid vaccine. - Social history:: Smoking status: Patient denies any tobacco usage or history of. Patient/guardian denies using alcohol, street drugs. - Family history:: not pertinent. ROS: 08:57 Constitutional: Negative for fever, chills, and weight loss, Eyes: Negative for injury, gerry pain, redness, and discharge, ENT: Negative for injury, pain, and discharge, Neck: Negative for injury, pain, and swelling, Cardiovascular: Negative for chest pain, palpitations, and edema, Respiratory: Negative for shortness of breath, cough, wheezing, and pleuritic chest pain, Abdomen/GI: Negative for abdominal pain, nausea, vomiting, diarrhea, and constipation, Back: Negative for injury and pain, : Negative for injury, bleeding, discharge, and swelling, Skin: Negative for injury, rash, and discoloration, Neuro: Negative for headache, weakness, numbness, tingling, and seizure, Psych: Negative for depression, anxiety, suicide ideation, homicidal ideation, and hallucinations, Allergy/Immunology: Negative for hives, rash, and allergies, Endocrine: Negative for neck swelling, polydipsia, polyuria, polyphagia, and marked weight changes, Hematologic/Lymphatic: Negative for swollen nodes, abnormal bleeding, and unusual bruising. 08:57 MS/extremity: Positive for decreased range of motion, pain, swelling, tenderness. Exam: 08:57 Constitutional: This is a well developed, well nourished patient who is awake, alert, gerry and in no acute distress. Head/Face: Normocephalic, atraumatic. Eyes: Pupils equal round and reactive to light, extra-ocular motions intact. Lids and lashes normal. Conjunctiva and sclera are non-icteric and not injected. Cornea within normal limits. Periorbital areas with no swelling, redness, or edema. ENT: Nares patent. No nasal discharge, no septal abnormalities noted. Tympanic membranes are normal and external auditory canals are clear. Oropharynx with no redness, swelling, or masses, exudates, or evidence of obstruction, uvula midline. Mucous membranes moist. Neck: Trachea midline, no thyromegaly or masses palpated, and no cervical lymphadenopathy. Supple, full range of motion without nuchal rigidity, or vertebral point tenderness. No Meningismus. Chest/axilla: Normal chest wall appearance and motion. Nontender with no deformity. No lesions are appreciated. Cardiovascular: Regular rate and rhythm with a normal S1 and S2. No gallops, murmurs, or rubs. Normal PMI, no JVD. No pulse deficits. Respiratory: Lungs have equal breath sounds bilaterally, clear to auscultation and percussion. No rales, rhonchi or wheezes noted. No increased work of breathing, no retractions or nasal flaring. Abdomen/GI: Soft, non-tender, with normal bowel sounds. No distension or tympany. No guarding or rebound. No evidence of tenderness throughout. Back: No spinal tenderness. No costovertebral tenderness. Full range of motion. Skin: Warm, dry with normal turgor. Normal color with no rashes, no lesions, and no evidence of cellulitis. Neuro: Awake and alert, GCS 15, oriented to person, place, time, and situation. Cranial nerves II-XII grossly intact. Motor strength 5/5 in all extremities. Sensory grossly intact. Cerebellar exam normal. Normal gait. Psych: Awake, alert, with orientation to person, place and time. Behavior, mood, and affect are within normal limits. 08:57 Musculoskeletal/extremity: Extremities: noted in the left knee: decreased ROM, pain. Vital Signs: 06:53 BP 132 / 84; Pulse 75; Resp 19; Temp 97.3; Pulse Ox 100% ; Weight 77.11 kg; Height 5 jj7 ft. 4 in. ; Pain 6/10; 09:51 BP 140 / 83; Pulse 71; Resp 17; Temp 97.8; Pulse Ox 98% on R/A; bc6 06:53 Body Mass Index 29.18 (77.11 kg, 162.56 cm) [facility] 06:53 Pain Scale: Adult j7 MDM: 06:58 Patient medically screened. [facility] 08:57 Data reviewed: vital signs, nurses notes, radiologic studies, doppler, plain films. [facility] Consideration of Admission/Observation Escalation of care including admission/observation considered. I considered the following discharge prescriptions or medication management in the emergency department Medications were administered in the Emergency Department. See MAR. Test considered but Not performed: MRI: no mri. Care significantly affected by the following chronic conditions: asthma, cbp,gerd,rls. 01/01 07:47 Order name: CBC with Diff; Complete Time: 08:56 [facility] 01/01 07:47 Order name: Comprehensive Metabolic Panel; Complete Time: 08:56 [facility] 01/01 07:47 Order name: PT-INR [facility] 01/01 07:47 Order name: Knee Left 3 View XRAY; Complete Time: 08:56 [facility] 01/01 07:47 Order name: US Extremity Venous W Compression South; Complete Time: 08:56 [facility] 01/01 08:57 Order name: Knee Immobilizer; Complete Time: 09:24 [facility] 01/01 08:57 Order name: Ice pack; Complete Time: 09:24 [facility] Administered Medications: 08:38 Drug: NS 0.9% IV 500 ml Route: IV; Rate: bolus; Site: left antecubital; ss 10:15 Follow up: Response: No adverse reaction; IV Status: Completed infusion; IV Intake: nj1 500ml 09:19 Drug: Ketorolac IVP 30 mg Route: IVP; Site: left antecubital; nj1 10:15 Follow up: Response: No adverse reaction; Pain is decreased nj1 09:19 Drug: [place] PO 10 mg-325 mg 1 tabs Route: PO; nj1 10:15 Follow up: Response: No adverse reaction; Pain is decreased nj1 Disposition Summary: 01/01/23 09:05 Discharge Ordered Location: Home gerry Problem: new gerry Symptoms: have improved gerry Condition: Stable gerry Diagnosis - Effusion, left knee gerry - Unspecified internal derangement of left knee - MENISCUS gerry - Pain in left knee gerry Followup: gerry - With: Private Physician - When: 2 - 3 days - Reason: Recheck today's complaints, Re-evaluation by your physician Followup: gerry - With: Eloy Ricci MD - When: - Reason: Recheck today's complaints, Continuance of care, Re-evaluation by your physician Discharge Instructions: - Discharge Summary Sheet gerry - Joint Pain gerry - Arthritis gerry - How to Use a Knee Brace gerry - Knee Effusion gerry - Musculoskeletal Pain gerry - Acute Knee Pain, Adult gerry - How to Use Cold Therapy, [id number] gerry - Knee Effusion, [id number]-[id number] gerry - Arthritis, [id number] gerry - How to Use Cold Therapy [facility] Forms: - Medication Reconciliation Form [facility] - Thank You Letter gerry - Antibiotic Education gerry - Prescription Opioid Use [facility] Prescriptions: - acetaminophen-codeine 300-30 mg Oral tablet - take 2 tablet by ORAL route every 6 hours; 24 tablet; Refills: 0, Product [facility] Selection Permitted - Diclofenac Sodium 75 mg Oral tablet,delayed release (DR/EC) - take 1 tablet by ORAL route 2 times per day; 20 tablet; Refills: 0, Product [facility] Selection Permitted Signatures: Dispatcher [employer] Shayan Russell MD MD cha Blanchard, Shelby, RN RN ss Manisha Ritchie RN RN jj7 Erendira Kemp RN RN nj1
[2023-01-01] MEDS ORDERED: HYDROCODONE/APAP 10/325 TAB ONE (09:21)
[2023-01-01] MEDS ORDERED: KETOROLAC 30 MG/ML INJ ONE (09:21)
[2023-01-01 11:23] VITALS: BP 140/83; TEMP 97.8; O2SAT 98
== END 2023-01-01 10:25 | disposition home or self-care (01) ==
LOC: ER 06:36
DX: M25.462 Effusion, left knee (principal); M23.307 Other meniscus derangements, unspecified meniscus, left knee; Z88.8 Allergy status to other drugs, medicaments and biological substances
CPT/HCPCS: 85025; 36415; 85610; 80053; 73562; 93970; J7040

== ENCOUNTER → 2023-09-07 | Emergency (ER) | payer OTHER, MEDICARE ==
[~2023-09-07] MED LIST: CEFTRIAXONE 1000 MG/VIAL ONE; FAMOTIDINE 20 MG/2 ML VIAL IV ONE; KETOROLAC 30 MG/ML INJ ONE; MORPHINE 4 MG/ML SYR ONE; NA CHLORIDE 0.9% 1,000 ML ONE; ONDANSETRON 4 MG/2 ML VIAL ONE; dexAMETHasone 10 MG/ML VIAL ONE
[2023-09-07 08:09] LABS: Absolute Lymphocytes (CBC) 2.5 K/uL (0.7-4.9); Hematocrit 43.6 % (36.0-45.0); Lymphocytes % 36.4 % (15.3-44.8); MCV 90.2 fL (80-100); MPV 7.8 fL (7.6-11.3); Platelets 389 thou/uL (152-406); RBC Red Blood Cell Count 4.84 M/uL (3.86-4.86)
[2023-09-07 08:14] LABS: Urine Bacteria None Seen /HPF (<20); Urine Bilirubin NEGATIVE (Negative); Urine Blood Negative (Negative); Urine Clarity Turbid (Clear); Urine Color Light-Yellow (Yellow); Urine Glucose NEGATIVE (Negative); Urine Protein NEGATIVE (Negative); Urine RBC <5 /HPF (None Seen); Urine Urobilinogen Normal (Normal)
[2023-09-07 08:15] LABS: Albumin 3.9 g/dL (3.4-5.0); Bilirubin Total 0.7 mg/dL (0.2-1.0); Potassium 3.9 mEq/L (3.5-5.1); Protein, Total 7.5 g/dL (6.4-8.2)
--- NOTE | 2023-09-07 09:16 | RAD REPORT ---
EXAM DESCRIPTION: CT - Abdomen Pelvis W Contrast - 09/07/2023 8:35 am CLINICAL HISTORY: Abdominal pain/right flank pain COMPARISON: none. TECHNIQUE: Computed axial tomography of the abdomen pelvis was obtained. 100 cc Isovue-300 was admin istered intravenously. Oral contrast was not requested which limits evaluation of bowel and appendix All CT scans are performed using dose optimization technique as appropriate and may include automated exposure control or mA/KV adjustment according to patient size. FINDINGS: The liver, spleen, pancreas, adrenal and kidneys appear unremarkable. There is no evidence of diverticulitis. Hysterectomy. No adnexal mass. Patient reports appendectomy Tiny umbilical hernia IMPRESSION: No acute abnormality is displayed.
--- NOTE | 2023-09-07 11:04 | EDPHYS ---
Physician Documentation [facility] Name: Cynthia Piper Age: 68 yrs Sex: Female : 1955 Arrival Date: 09/07/2023 Time: 07:22 Bed 20 Private MD: Gutierrez [facility] ED Physician Shayan Farfan HPI: 09/07 10:58 This 68 yrs old Female presents to ER via Ambulatory with complaints of Flank gerry Pain. 10:58 The patient complains of pain in the right mid back. The pain does not radiate. Onset: gerry The symptoms/episode began/occurred 2 week(s) ago. Modifying factors: The symptoms are alleviated by nothing. remaining still, the symptoms are aggravated by movement, palpation/percussion. The patient presents with pain that is acute. The symptoms are located in the right mid back. Onset: The symptoms/episode began/occurred 14 day(s) ago. The pain does not radiate. Associated signs and symptoms: Pertinent positives: right rlank pain, costal margin pain. Modifying factors: The patient symptoms are alleviated by remaining still, rest, the patient symptoms are aggravated by bending, coughing, movement. Severity of symptoms: At their worst the symptoms were moderate, in the emergency department the symptoms are unchanged. Severity of pain: At its worst the pain was moderate in the emergency department the pain is unchanged. Historical: - Allergies: 10:57 Elavil; hb - Home Meds: 07:34 Requip Oral [Active]; atorvastatin 20 mg oral tablet daily [Active]; Proair Digihaler hb 90 mcg/actuation inhalation Aerosol Powder, Breath Activ.with Sensor [Active]; alendronate 10 mg oral tablet daily [Active]; valacyclovir 500 mg oral tablet daily [Active]; - PMHx: 07:34 Asthma; chronic back pain; GERD; High Cholesterol; restless leg syndrome; hb - PSHx: 07:34 Appendectomy; hysterectomy; hb - Immunization history:: Client reports receiving the 2nd dose of the Covid vaccine, Flu vaccine is not up to date. It has been more than one year since last vaccine. - Social history:: Smoking status: Patient denies any tobacco usage or history of. - Family history:: not pertinent. ROS: 10:58 Constitutional: Negative for fever, chills, and weight loss, Eyes: Negative for injury, gerry pain, redness, and discharge, ENT: Negative for injury, pain, and discharge, Neck: Negative for injury, pain, and swelling, Cardiovascular: Negative for chest pain, palpitations, and edema, Respiratory: Negative for shortness of breath, cough, wheezing, and pleuritic chest pain, Abdomen/GI: Negative for abdominal pain, nausea, vomiting, diarrhea, and constipation, : Negative for injury, bleeding, discharge, and swelling, MS/Extremity: Negative for injury and deformity, Skin: Negative for injury, rash, and discoloration, Neuro: Negative for headache, weakness, numbness, tingling, and seizure, Psych: Negative for depression, anxiety, suicide ideation, homicidal ideation, and hallucinations, Allergy/Immunology: Negative for hives, rash, and allergies, Endocrine: Negative for neck swelling, polydipsia, polyuria, polyphagia, and marked weight changes, Hematologic/Lymphatic: Negative for swollen nodes, abnormal bleeding, and unusual bruising, 10:58 Back: Positive for pain at rest, pain with movement, of the right mid back, Exam: 10:58 Constitutional: This is a well developed, well nourished patient who is awake, alert, gerry and in no acute distress. Head/Face: Normocephalic, atraumatic. Eyes: Pupils equal round and reactive to light, extra-ocular motions intact. Lids and lashes normal. Conjunctiva and sclera are non-icteric and not injected. Cornea within normal limits. Periorbital areas with no swelling, redness, or edema. ENT: Nares patent. No nasal discharge, no septal abnormalities noted. Tympanic membranes are normal and external auditory canals are clear. Oropharynx with no redness, swelling, or masses, exudates, or evidence of obstruction, uvula midline. Mucous membranes moist. Neck: Trachea midline, no thyromegaly or masses palpated, and no cervical lymphadenopathy. Supple, full range of motion without nuchal rigidity, or vertebral point tenderness. No Meningismus. Chest/axilla: Normal chest wall appearance and motion. Nontender with no deformity. No lesions are appreciated. Cardiovascular: Regular rate and rhythm with a normal S1 and S2. No gallops, murmurs, or rubs. Normal PMI, no JVD. No pulse deficits. Respiratory: Lungs have equal breath sounds bilaterally, clear to auscultation and percussion. No rales, rhonchi or wheezes noted. No increased work of breathing, no retractions or nasal flaring. Abdomen/GI: Soft, non-tender, with normal bowel sounds. No distension or tympany. No guarding or rebound. No evidence of tenderness throughout. Female : Normal external genitalia. Skin: Warm, dry with normal turgor. Normal color with no rashes, no lesions, and no evidence of cellulitis. MS/ Extremity: Pulses equal, no cyanosis. Neurovascular intact. Full, normal range of motion. Neuro: Awake and alert, GCS 15, oriented to person, place, time, and situation. Cranial nerves II-XII grossly intact. Motor strength 5/5 in all extremities. Sensory grossly intact. Cerebellar exam normal. Normal gait. Psych: Awake, alert, with orientation to person, place and time. Behavior, mood, and affect are within normal limits. 10:58 Back: pain, that is moderate, ROM is painful, normal spinal alignment noted, CVA tenderness, is absent, vertebral tenderness, is not appreciated, muscle spasm, is appreciated in the left low back, left mid back, right mid back and right low back, no rash, 11:07 Respiratory: the patient does not display signs of respiratory distress, Respirations: gerry normal, Breath sounds: are clear throughout, no bronchial sounds, no decreased breath sounds, no rales, rhonchi, no stridor, Respiratory rate: 16 11:07 Musculoskeletal/extremity: DVT Exam: No signs of deep vein thrombosis. no pain, no swelling, no tenderness, negative Homans' sign noted on exam, no appreciated bluish discoloration, no erythema, no increased warmth, 11:07 Skin: Appearance: Color: normal in color, Temperature: normal temperature, Moisture: normal moisture, petechiae, not noted, ecchymosis, not noted, flushing, not noted, diaphoresis is not appreciated, no rash present. Vital Signs: 07:33 BP 136 / 88; Pulse 72; Resp 16; Temp 98.3(O); Pulse Ox 100% on R/A; Weight 77.11 kg; hb Height 5 ft. 4 in. ; Pain 8/10; 09:51 BP 133 / 75; Pulse 61; Resp 16 S; Pulse Ox 99% on R/A; kc6 11:45 BP 133 / 75; Pulse 65; Resp 16 S; Pulse Ox 99% on R/A; kc6 07:33 Body Mass Index 29.18 (77.11 kg, 162.56 cm) hb 07:33 Pain Scale: Adult hb MDM: 07:34 Patient medically screened. [facility] 11:01 Differential diagnosis: nephrolithiasis, pyelonephritis, UTI, pancreatitis, chronic gerry back pain, Fracture Metastatic Disease Obesity Osteomyelitis Osteoporosis Pyelonephritis Renal Infarction ruptured disc, Scoliosis sprain, vertebral fracture. Data reviewed: vital signs, nurses notes. Consideration of Admission/Observation Escalation of care including admission/observation considered. I considered the following discharge prescriptions or medication management in the emergency department Medications were administered in the Emergency Department. See MAR. Independent interpretation of the following test(s) in the Emergency Department CT Scan: My interpretation is ct abd/pelvis. Test considered but Not performed: EKG: no ekg. 09/07 07:36 Order name: CBC with Diff; Complete Time: 10:17 [facility] 09/07 07:36 Order name: CMP; Complete Time: 10:17 [facility] 09/07 07:36 Order name: Lipase; Complete Time: 10:17 [facility] 09/07 07:36 Order name: Urinalysis w/ reflexes; Complete Time: 10:17 [facility] 09/07 07:36 Order name: CT Abd/Pelvis - IV Contrast Only; Complete Time: 10:17 [facility] 09/07 07:36 Order name: IV Saline Lock; Complete Time: 07:53 [facility] 09/07 07:36 Order name: Labs collected and sent; Complete Time: 08:05 [facility] Administered Medications: 08:05 Drug: NS 0.9% IV 1000 ml IV at 1 bolus Per protocol; 1000 mL bolus Route: IV; Rate: 1 kc6 bolus; Site: right forearm; 10:32 Follow up: Response: No adverse reaction; IV Status: Completed infusion; IV Intake: kc6 1000ml 08:05 Drug: Famotidine IVP 20 mg IVP once; dilute with 10 mL 0.9% NaCl; give over 2 minutes kc6 Route: IVP; Site: right forearm; 10:33 Follow up: Response: No adverse reaction kc6 08:05 Drug: Ondansetron IVP 4 mg IVP once; over 2 minutes Route: IVP; Site: right forearm; kc6 10:32 Follow up: Response: No adverse reaction; Nausea is decreased kc6 08:05 Drug: morphine IVP or IV 4 mg IVP once over 4 mins Route: IVP; Infused Over: 4 mins; kc6 Site: right forearm; 10:32 Follow up: Response: No adverse reaction; Pain is unchanged, physician notified; RASS: kc6 Alert and Calm (0) 10:32 Drug: Rocephin IV 1 grams IV at per protocol once; Given slow IV push per pharmacy kc6 instructions Route: IV; Rate: per protocol; Site: right forearm; 11:46 Follow up: Response: No adverse reaction; IV Status: Completed infusion; IV Intake: [id number] 11:31 Drug: Decadron - Dexamethasone IVP 10 mg IVP once Route: IVP; Site: right antecubital; cp4 11:46 Follow up: Response: No adverse reaction kc6 11:31 Drug: Ketorolac IVP 30 mg IVP once Route: IVP; Site: right antecubital; cp4 11:46 Follow up: Response: No adverse reaction; Pain is decreased kc6 Disposition Summary: 09/07/23 11:03 Discharge Ordered Notes: Location: Home [facility] Problem: new gerry Symptoms: have improved gerry Condition: Stable gerry Diagnosis - Unspecified symptoms and signs involving the musculoskeletal system gerry - UTI/ Urinary tract infection, site not specified gerry Followup: gerry - With: Travis Whitley DO - When: 2 - 3 days - Reason: Recheck today's complaints, Continuance of care, Re-evaluation by your physician Discharge Instructions: - Discharge Summary Sheet gerry - Musculoskeletal Pain gerry - Urinary Tract Infection, Adult gerry - Urinary Tract Infection, Adult, [id number] [facility] Forms: - Medication Reconciliation Form [facility] - Thank You Letter gerry - Antibiotic Education gerry - Prescription Opioid Use gerry - Patient Portal Instructions [facility] - Leadership Thank You Letter [facility] Prescriptions: - Valtrex 1 gram Oral tablet - take 1 tablet ORAL route 3 times per day; 21 tablet; Refills: 0, Product gerry Selection Permitted - acetaminophen-codeine 300-30 mg Oral tablet - take 2 tablet ORAL route every 6 hours as needed for pain; 20 tablet; Refills: gerry 0, Product Selection Permitted - Cipro 250 mg Oral tablet - take 1 tablet ORAL route every 12 hours; 14 tablet; Refills: 0, Product gerry Selection Permitted - Diclofenac Sodium 75 mg Oral tablet, delayed release (enteric coated) - take 1 tablet ORAL route 2 times per day; 20 tablet; Refills: 0, Product gerry Selection Permitted Signatures: Dispatcher [employer] Shayan Russell MD MD cha Baxter, Heather RN RN Cyndie Peralta RN RN kc6 Daniella Tomlinson cp4 Corrections: (The following items were deleted from the chart) 10:57 07:34 Allergies: Elvil; hb hb
--- NOTE | 2023-09-07 11:04 | ER ---
Nurse's Notes [facility] Name: Cynthia Piper Age: 68 yrs Sex: Female : 1955 Arrival Date: 09/07/2023 Time: 07:22 Bed 20 Private MD: Travis Whitley Diagnosis: Unspecified symptoms and signs involving the musculoskeletal system;UTI/ Urinary tract infection, site not specified Presentation: 09/07 07:33 Chief complaint: Intermittent right flank pain x weeks, became severe today. Denies hb injury/urinary symptoms. Coronavirus screen: At this time, the client does not indicate any symptoms associated with coronavirus-19. Ebola Screen: No symptoms or risks identified at this time. Initial Sepsis Screen: Does the patient meet any 2 criteria? No. Patient's initial sepsis screen is negative. Does the patient have a suspected source of infection? No. Patient's initial sepsis screen is negative. Risk Assessment: Do you want to hurt yourself or someone else? Patient reports no desire to harm self or others. Onset of symptoms was August 2023. 07:33 Method Of Arrival: Ambulatory hb 07:33 Acuity: MILIND 3 hb Triage Assessment: 07:34 General: Appears in no apparent distress. Behavior is calm, cooperative. Pain: Pain hb currently is 8 out of 10 on a pain scale. Neuro: Level of Consciousness is awake, alert, obeys commands, Oriented to person, place, time, situation. Cardiovascular: Patient's skin is warm and dry. Respiratory: Respiratory effort is even, unlabored, Respiratory pattern is regular, symmetrical. Historical: - Allergies: 10:57 Elavil; hb - Home Meds: 07:34 Requip Oral [Active]; atorvastatin 20 mg oral tablet daily [Active]; Proair Digihaler hb 90 mcg/actuation inhalation Aerosol Powder, Breath Activ.with Sensor [Active]; alendronate 10 mg oral tablet daily [Active]; valacyclovir 500 mg oral tablet daily [Active]; - PMHx: 07:34 Asthma; chronic back pain; GERD; High Cholesterol; restless leg syndrome; hb - PSHx: 07:34 Appendectomy; hysterectomy; hb - Immunization history:: Client reports receiving the 2nd dose of the Covid vaccine, Flu vaccine is not up to date. It has been more than one year since last vaccine. - Social history:: Smoking status: Patient denies any tobacco usage or history of. - Family history:: not pertinent. Screenin:32 [facility] ED Fall Risk Assessment (Adult) History of falling in the last 3 months, kc6 including since admission No falls in past 3 months (0 pts) Confusion or Disorientation No (0 pts) Intoxicated or Sedated No (0 pts) Impaired Gait No (0 pts) Mobility Assist Device Used No (0 pt) Altered Elimination No (0 pt) Score/Fall Risk Level 0 - 2 = Low Risk. Abuse screen: Denies threats or abuse. Denies injuries from another. Nutritional screening: No deficits noted. Tuberculosis screening: No symptoms or risk factors identified. Assessment: 08:06 General: Appears in no apparent distress. uncomfortable, well groomed, well developed, kc6 Behavior is calm, cooperative, appropriate for age. Pain: Complains of pain in low back area, epigastric area and right upper quadrant. Neuro: Level of Consciousness is awake, alert, obeys commands, Oriented to person, place, time, situation, Appropriate for age. Cardiovascular: Capillary refill < 3 seconds. Respiratory: Airway is patent Trachea midline Respiratory effort is even, unlabored, Respiratory pattern is regular, symmetrical. GI: No signs and/or symptoms were reported involving the gastrointestinal system. : No signs and/or symptoms were reported regarding the genitourinary system. Urine is clear. EENT: No signs and/or symptoms were reported regarding the EENT system. Derm: No signs and/or symptoms reported regarding the dermatologic system. Skin is intact, is healthy with good turgor, Skin is pink, warm \T\ dry. Musculoskeletal: No signs and/or symptoms reported regarding the musculoskeletal system. Circulation, motion, and sensation intact. Capillary refill < 3 seconds, Range of motion: intact in all extremities. 09:51 Reassessment: Patient appears in no apparent distress at this time. No changes from kc6 previously documented assessment. Patient and/or family updated on plan of care and expected duration. Pain level reassessed. Patient is alert, oriented x 3, equal unlabored respirations, skin warm/dry/pink. 10:51 Reassessment: Patient appears in no apparent distress at this time. No changes from kc6 previously documented assessment. Patient and/or family updated on plan of care and expected duration. Pain level reassessed. Patient is alert, oriented x 3, equal unlabored respirations, skin warm/dry/pink. 11:45 Reassessment: Patient appears in no apparent distress at this time. No changes from kc6 previously documented assessment. Patient and/or family updated on plan of care and expected duration. Pain level reassessed. Patient is alert, oriented x 3, equal unlabored respirations, skin warm/dry/pink. Vital Signs: 07:33 BP 136 / 88; Pulse 72; Resp 16; Temp 98.3(O); Pulse Ox 100% on R/A; Weight 77.11 kg; hb Height 5 ft. 4 in. ; Pain 8/10; 09:51 BP 133 / 75; Pulse 61; Resp 16 S; Pulse Ox 99% on R/A; kc6 11:45 BP 133 / 75; Pulse 65; Resp 16 S; Pulse Ox 99% on R/A; kc6 07:33 Body Mass Index 29.18 (77.11 kg, 162.56 cm) hb 07:33 Pain Scale: Adult hb ED Course: 07:24 Patient arrived in ED. mr 07:24 Travis Whitley DO is Private Physician. mr 07:26 Cyndie Dorsey, RN is Primary Nurse. kc6 07:32 Shayan Farfan MD is Attending Physician. gerry 07:32 Patient maintains SpO2 saturation greater than 95% on room air. kc6 07:32 Patient has correct armband on for positive identification. Bed in low position. Call kc6 light in reach. Side rails up X 1. Adult w/ patient. Client placed on continuous cardiac and pulse oximetry monitoring. NIBP monitoring applied. 07:34 Triage completed. hb 07:34 Arm band placed on. hb 07:53 CBC with Diff Sent. bc6 07:53 CMP Sent. bc6 07:53 Lipase Sent. bc6 07:53 Inserted saline lock: 20 gauge in right forearm, using aseptic technique. Blood bc6 collected. 08:05 Urinalysis w/ reflexes Sent. kc6 08:37 CT Abd/Pelvis - IV Contrast Only In Process Unspecified. EDMS 11:03 Shayan Farfan MD is Referral Physician. gerry 11:03 Travis Whitley DO is Referral Physician. gerry 11:03 Referral Physician role handed off by Shayan Farfan MD gerry 11:46 No provider procedures requiring assistance completed. IV discontinued, intact, kc6 bleeding controlled, No redness/swelling at site. Pressure dressing applied. Administered Medications: 08:05 Drug: NS 0.9% IV 1000 ml IV at 1 bolus Per protocol; 1000 mL bolus Route: IV; Rate: 1 kc6 bolus; Site: right forearm; 10:32 Follow up: Response: No adverse reaction; IV Status: Completed infusion; IV Intake: kc6 1000ml 08:05 Drug: Famotidine IVP 20 mg IVP once; dilute with 10 mL 0.9% NaCl; give over 2 minutes kc6 Route: IVP; Site: right forearm; 10:33 Follow up: Response: No adverse reaction kc6 08:05 Drug: Ondansetron IVP 4 mg IVP once; over 2 minutes Route: IVP; Site: right forearm; kc6 10:32 Follow up: Response: No adverse reaction; Nausea is decreased kc6 08:05 Drug: morphine IVP or IV 4 mg IVP once over 4 mins Route: IVP; Infused Over: 4 mins; kc6 Site: right forearm; 10:32 Follow up: Response: No adverse reaction; Pain is unchanged, physician notified; RASS: kc6 Alert and Calm (0) 10:32 Drug: Rocephin IV 1 grams IV at per protocol once; Given slow IV push per pharmacy kc6 instructions Route: IV; Rate: per protocol; Site: right forearm; 11:46 Follow up: Response: No adverse reaction; IV Status: Completed infusion; IV Intake: [id number] 11:31 Drug: Decadron - Dexamethasone IVP 10 mg IVP once Route: IVP; Site: right antecubital; cp4 11:46 Follow up: Response: No adverse reaction kc6 11:31 Drug: Ketorolac IVP 30 mg IVP once Route: IVP; Site: right antecubital; cp4 11:46 Follow up: Response: No adverse reaction; Pain is decreased kc6 Medication: 11:46 VIS not applicable for this client. kc6 Intake: 10:32 IV: 1000ml; Total: 1000ml. kc6 11:46 IV: 10ml; Total: 1010ml. kc6 Outcome: 11:03 Discharge ordered by MD. garrett 11:46 Discharged to home ambulatory, with significant other, kc6 11:46 Condition: good 11:46 Discharge instructions given to patient, Instructed on discharge instructions, follow up and referral plans. medication usage, Demonstrated understanding of instructions, follow-up care, medications, Prescriptions given X 4, 11:46 Patient left the ED. kc6 Signatures: Dispatcher [employer] EDShayan Becerril MD MD cha Rivera, Alecia, Reg Reg mr Sissy Will RN RN hb Campbell, Kaitlyn, RN RN kc6 Marie Perez Christina cp4 Corrections: (The following items were deleted from the chart) 10:57 07:34 Allergies: Elvil; hb hb
[2023-09-07 11:59] VITALS: BP 133/75; TEMP 98.3; O2SAT 99
== END ==
LOC: ER 07:22
DX: N39.0 Urinary tract infection, site not specified (principal); R29.91 Unspecified symptoms and signs involving the musculoskeletal system; Z88.8 Allergy status to other drugs, medicaments and biological substances
CPT/HCPCS: 85025; 81001; 36415; 83690; 80053; 74177; Q9967; J1100; J2405; J7030; J0696; 99285

== ENCOUNTER 2025-03-01 21:14 | Emergency (ER) | payer OTHER, MEDICARE ==
[2025-03-01] MEDS ORDERED: CEPHALEXIN 250 MG CAP ONE (21:38)
[2025-03-01] MEDS ORDERED: HYDROCODONE/APAP 7.5/325 MG TAB ONE (21:39)
[2025-03-01] MEDS ORDERED: TDAP (DIPHTH,PERTUSS(ACELL),TET VAC) 0.5 ML VIAL IMVAC ONE (21:39)
--- NOTE | 2025-03-01 22:10 | RAD REPORT ---
EXAMINATION: XR LEFT FOOT CLINICAL INDICATION: PAIN TECHNIQUE: Multiple projections of the left foot were obtained. COMPARISON: 05/20/2008 FINDINGS: No evidence of acute fracture or dislocation. Mild soft tissue swelling along the dorsum of the foot. Large calcaneal spurs.
[2025-03-01] MEDS ORDERED: KETOROLAC 30 MG/ML INJ ONE (22:24)
[2025-03-01] MEDS ORDERED: DIAZEPAM 5 MG TABLET ONE (22:24)
--- NOTE | 2025-03-01 23:19 | EDPHYS ---
Physician Documentation [facility] Name: Cynthia Piper Age: 69 yrs Sex: Female : 1955 Arrival Date: 03/01/2025 Time: 21:14 Bed IW10 Private MD: ED Physician Steve Griffith HPI: 03/01 22:56 This 69 yrs old Female presents to ER via Wheelchair with complaints of Foot Pain - kb left. 22:56 Patient is a 69-year-old female who presents for pain to left foot that started on kb Friday. States she fell on Friday injuring the foot, went to Dr. Ricci yesterday had a normal x-ray done. Came in today because the pain is gotten worse and she is developed redness to the top of the foot. Patient has a history of cellulitis.. Historical: - Allergies: 21:22 Elavil; dd2 - PMHx: 21:22 Asthma; chronic back pain; GERD; High Cholesterol; restless leg syndrome; dd2 - PSHx: 21:22 Appendectomy; hysterectomy; dd2 - Immunization history:: Adult Immunizations up to date. - Infectious Disease History:: Denies. - Social history:: Smoking status: Patient denies any tobacco usage or history of. ROS: 22:52 Constitutional: As per HPI kb Exam: 22:55 Head/Face: Normocephalic, atraumatic. ENT: Moist Mucous membranes Respiratory: kb Respirations even and unlabored. No increased work of breathing. Talking in full sentences Neuro: Awake and alert, GCS 15, oriented to person, place, time, and situation. 22:55 Constitutional: The patient appears alert, awake, in obvious pain, 22:55 Musculoskeletal/extremity: Extremities: grossly normal except: noted in the dorsum of left foot and left first toe: abrasion, erythema, pain, swelling, tenderness, ROM: limited active range of motion due to pain, Circulation is intact in all extremities. Sensation intact. Vital Signs: 21:19 BP 160 / 82; Pulse 89; Resp 19; Temp 98.4; Pulse Ox 100% ; Weight 68.04 kg; Pain 10/10; dd2 21:28 BP 176 / 79; Pulse 82; Resp 18; Pulse Ox 100% ; me1 22:00 BP 145 / 79; Pulse 84; Resp 19; Pulse Ox 100% ; me1 22:19 BP 167 / 89; Pulse 75; Resp 18; Pulse Ox 100% on R/A; Pain 10/10; tb4 21:19 Pain Scale: Adult dd2 22:19 Pain Scale: Adult tb4 MDM: 21:20 Medical Screening Exam initiated kb 22:56 Differential diagnosis: closed fracture, sprain, cellulitis. Data reviewed: vital kb signs, nurses notes. 22:56 Independent interpretation of the following test(s) in the Emergency Department X-Ray: kb My interpretation is No fracture on x-ray. Test considered but Not performed: Labs: cbc, cmp considered but pt is afebrile, nontoxic in appearance, vss. Historians other than the Patient: Family Member: family member. Counseling: I had a detailed discussion with the patient and/or guardian regarding the historical points, exam findings, and any diagnostic results supporting the discharge/admit diagnosis, radiology results, the need for outpatient follow up, a family practitioner, to return to the emergency department if symptoms worsen or persist or if there are any questions or concerns that arise at home. 03/01 21:35 Order name: Foot Left 3 View XRAY; Complete Time: 22:16 kb Administered Medications: 21:43 Drug: Boostrix Tdap IM 0.5 ml IM once; as a single dose Route: IM; Site: right deltoid; me1 22:30 Follow up: Response: No adverse reaction tb4 21:43 Drug: Hydrocodone-Acetaminophen PO (7.5 mg-325 mg) 1 tabs PO once Route: PO; me1 22:30 Follow up: Response: No adverse reaction; Pain is decreased; RASS: Alert and Calm (0) tb4 21:43 Drug: Cephalexin PO 500 mg PO once Route: PO; me1 22:30 Follow up: Response: No adverse reaction tb4 22:21 CANCELLED (Physician Discretion): lorazepam1 mg IM once kb 22:23 CANCELLED (Other Intervention Used): diazepam2 mg PO once kb 22:30 Drug: Ketorolac IM 30 mg IM once Route: IM; Site: left deltoid; tb4 23:15 Follow up: Response: No adverse reaction; Pain is decreased; RASS: Alert and Calm (0) tb4 22:30 Drug: Diazepam PO 5 mg PO once Route: PO; tb4 23:14 Follow up: Response: No adverse reaction; Anxiety decreased tb4 Disposition: 03/02 18:38 Co-signature as Attending Physician, Steve Griffith MD I agree with the assessment sp4 and plan of care. I reviewed the patient's care provided by the Advanced Practice Provider and agree with the diagnosis and treatment plan. 18:41 Chart complete. sp4 Disposition Summary: 03/01/25 23:19 Discharge Ordered Notes: Location: Home kb Condition: Stable kb Diagnosis - Cellulitis of left lower limb - foot kb Followup: kb - With: Emergency Department - When: As needed - Reason: Worsening of condition Followup: kb - With: Private Physician - When: 2 - 3 days - Reason: Recheck today's complaints, Continuance of care, Re-evaluation by your physician Discharge Instructions: - Discharge Summary Sheet kb - Cellulitis, Adult, [id number] kb Forms: - Medication Reconciliation Form kb - Antibiotic Education kb - Prescription Opioid Use kb - Patient Portal Instructions kb - Leadership Thank You Letter kb Prescriptions: - Cephalexin 500 mg Oral Capsule - take 1 capsule ORAL route every 8 hours for 10 days; 30 capsule; Refills: 0, kb Product Selection Permitted - Diclofenac Sodium 75 mg Oral tablet, delayed release (enteric coated) - take 1 tablet ORAL route 2 times per day As needed; 30 tablet; Refills: 0, kb Product Selection Permitted Signatures: Dispatcher [employer] Dejah Mcmahon, SHELLY-C SHELLY-Steve Rodriges MD MD sp4 Jaimie Braden RN RN me1 VINNY FOUNTAIN RN RN dd2 Mary Correa RN RN tb4 Corrections: (The following items were deleted from the chart) 03/01 22:21 22:20 LORazepam IM 1 mg IM once ordered. kb kb 22:23 22:21 Diazepam PO 2 mg PO once ordered. kb
--- NOTE | 2025-03-01 23:19 | ER ---
Nurse's Notes [facility] Name: Cynthia Piper Age: 69 yrs Sex: Female : 1955 Arrival Date: 03/01/2025 Time: 21:14 Bed IW10 Private MD: Diagnosis: Cellulitis of left lower limb-foot Presentation: 03/01 21:19 Chief complaint: Patient states: SHE TRIPPED AD FELL IN HER DRIVEWAY ABOUT 48 HOURS dd2 AGO, WENT TO DR. VIDES AND HAD XRAY. WAS TOLD NO FRACTURE BUT TODAY BEGAN HAVING SEVERE PAIN AND REDNESS THAT IS SPREADING UP HER FOOT. Coronavirus screen: At this time, the client does not indicate any symptoms associated with coronavirus-19. Ebola Screen: No symptoms or risks identified at this time. Initial Sepsis Screen: Does the patient meet any 2 criteria? No. Patient's initial sepsis screen is negative. Does the patient have a suspected source of infection?. Risk Assessment: Do you want to hurt yourself or someone else? Patient reports no desire to harm self or others. Onset of symptoms was March 01, 2025. 21:19 Method Of Arrival: Wheelchair dd2 21:19 Acuity: MILIND 3 dd2 Triage Assessment: 21:22 General: Appears in no apparent distress. uncomfortable, Behavior is cooperative, dd2 appropriate for age, crying. Pain: Complains of pain in right foot Pain currently is 10 out of 10 on a pain scale. Historical: - Allergies: 21:22 Elavil; dd2 - PMHx: 21:22 Asthma; chronic back pain; GERD; High Cholesterol; restless leg syndrome; dd2 - PSHx: 21:22 Appendectomy; hysterectomy; dd2 - Immunization history:: Adult Immunizations up to date. - Infectious Disease History:: Denies. - Social history:: Smoking status: Patient denies any tobacco usage or history of. Screenin:23 [facility] ED Fall Risk Assessment (Adult) History of falling in the last 3 months, me1 including since admission Yes- single mechanical fall (1 pt) Confusion or Disorientation No (0 pts) Intoxicated or Sedated No (0 pts) Impaired Gait Yes (1 pt) Mobility Assist Device Used Yes (1 pt) Altered Elimination No (0 pt) Score/Fall Risk Level 0 - 2 = Low Risk Maintained a safe environment, Provided non-skid footwear, Hourly rounding (assess needs \T\ fall precautionary measures) done. Abuse screen: Denies threats or abuse. Nutritional screening: No deficits noted. Tuberculosis screening: No symptoms or risk factors identified. Assessment: 21:22 General: Appears uncomfortable, Behavior is calm, cooperative, appropriate for age, me1 Reports SHE TRIPPED AD FELL IN HER DRIVEWAY ABOUT 48 HOURS AGO, WENT TO DR. VIDES AND HAD XRAY. WAS TOLD NO FRACTURE BUT TODAY BEGAN HAVING SEVERE PAIN AND REDNESS THAT IS SPREADING UP HER FOOT. Pain:. 21:23 Pain: Complains of pain in left foot Pain does not radiate. Pain currently is 10 out of me1 10 on a pain scale. Quality of pain is described as sharp, throbbing, Pain began gradually, Is continuous. Neuro: Level of Consciousness is awake, alert, obeys commands, Oriented to person, place, time, situation, Appropriate for age. Cardiovascular: Patient's skin is warm and dry. Respiratory: Airway is patent Respiratory effort is even, unlabored, Respiratory pattern is regular, symmetrical. GI: No signs and/or symptoms were reported involving the gastrointestinal system. EENT: No signs and/or symptoms were reported regarding the EENT system. Derm: Wound noted left foot Wound is redness, swollen, with wound on top of foot. Musculoskeletal: Reports pain in left foot. Injury Description: SHE TRIPPED AD FELL IN HER DRIVEWAY ABOUT 48 HOURS AGO, WENT TO DR. VIDES AND HAD XRAY. WAS TOLD NO FRACTURE BUT TODAY BEGAN HAVING SEVERE PAIN AND REDNESS THAT IS SPREADING UP HER FOOT. 22:19 General: Appears distressed, uncomfortable, Behavior is cooperative, crying, restless. tb4 Pain: Complains of pain in dorsum of right foot Pain does not radiate. Pain currently is 10 out of 10 on a pain scale. Quality of pain is described as sharp, throbbing, Pain began gradually, Is continuous, Alleviated by nothing. Neuro: Level of Consciousness is awake, alert, obeys commands, Oriented to person, place, time, situation, Grommet Man are equal bilaterally Moves all extremities. Full function Gait is unsteady, due to pain on left foot. Speech is normal, Facial symmetry appears normal. Respiratory: Airway is patent Trachea midline Respiratory effort is even, unlabored, Respiratory pattern is regular, symmetrical. GI: No signs and/or symptoms were reported involving the gastrointestinal system. EENT: No signs and/or symptoms were reported regarding the EENT system. Derm: Wound noted dorsum of right foot Wound is Red swollen and tight. Musculoskeletal: Reports pain in dorsum of right foot. Vital Signs: 21:19 BP 160 / 82; Pulse 89; Resp 19; Temp 98.4; Pulse Ox 100% ; Weight 68.04 kg; Pain 10/10; dd2 21:28 BP 176 / 79; Pulse 82; Resp 18; Pulse Ox 100% ; me1 22:00 BP 145 / 79; Pulse 84; Resp 19; Pulse Ox 100% ; me1 22:19 BP 167 / 89; Pulse 75; Resp 18; Pulse Ox 100% on R/A; Pain 10/10; tb4 21:19 Pain Scale: Adult dd2 22:19 Pain Scale: Adult tb4 ED Course: 21:15 Patient arrived in ED. im 21:18 Peter Verduzco, RN is Primary Nurse. bm8 21:[address] FNP-C is PHCP. kb 21:19 Steve Griffith MD is Attending Physician. kb 21:21 Triage completed. dd2 21:22 Arm band placed on right wrist. dd2 21:23 Patient has correct armband on for positive identification. Bed in low position. Call me1 light in reach. Side rails up X 1. Provided Education on: POC. Verbalized understanding.. Client placed on continuous cardiac and pulse oximetry monitoring. NIBP monitoring applied. Pulse ox on. NIBP on. 21:23 No provider procedures requiring assistance completed. me1 22:00 Foot Left 3 View XRAY In Process Unspecified. EDMS 23:02 Door closed. tb4 23:28 Patient did not have IV access during this emergency room visit. tb4 Administered Medications: 21:43 Drug: Boostrix Tdap IM 0.5 ml IM once; as a single dose Route: IM; Site: right deltoid; me1 22:30 Follow up: Response: No adverse reaction tb4 21:43 Drug: Hydrocodone-Acetaminophen PO (7.5 mg-325 mg) 1 tabs PO once Route: PO; me1 22:30 Follow up: Response: No adverse reaction; Pain is decreased; RASS: Alert and Calm (0) tb4 21:43 Drug: Cephalexin PO 500 mg PO once Route: PO; me1 22:30 Follow up: Response: No adverse reaction tb4 22:21 CANCELLED (Physician Discretion): lorazepam1 mg IM once kb 22:23 CANCELLED (Other Intervention Used): diazepam2 mg PO once kb 22:30 Drug: Ketorolac IM 30 mg IM once Route: IM; Site: left deltoid; tb4 23:15 Follow up: Response: No adverse reaction; Pain is decreased; RASS: Alert and Calm (0) tb4 22:30 Drug: Diazepam PO 5 mg PO once Route: PO; tb4 23:14 Follow up: Response: No adverse reaction; Anxiety decreased tb4 Medication: 21:23 VIS not applicable for this client. me1 Outcome: 23:19 Discharge ordered by . kb 23:27 Discharged to home via wheelchair, with friend, tb4 23:27 Condition: stable 23:27 Discharge instructions given to patient, family, Instructed on discharge instructions, follow up and referral plans. Demonstrated understanding of instructions, follow-up care, medications, Prescriptions given X 2, 23:52 Patient left the ED. tb4 Signatures: Dispatcher [employer] EDMS Dejah Way, TANNING WHEEL FILLER-C TANNING WHEEL FILLER-CkKamryn Anderson Michelle RN RN me1 Peter Verduzco, RN RN bm8 VINNY FOUNTAIN, ADOLFO RN dd2 Mary Correa, RN RN tb4 Corrections: (The following items were deleted from the chart) 21:22 21:19 Chief complaint: Patient states: SHE TRIPPED AD FELL IN HER DRIVEWAY ABOUT 48 me1 HOURS AGO, WENT TO DR. VIDES AND HAD XRAY. WAS TOLD NO FRACTURE BUT TODAY BEGAN HAVING SEVERE PAIN AND REDNESS THAT IS SPREADING UP HER FOOT. dd2 21:27 21:22 General: Appears uncomfortable, Behavior is calm, cooperative, appropriate for me1 age, Reports SHE TRIPPED AD FELL IN HER DRIVEWAY ABOUT 48 HOURS AGO, WENT TO DR. VIDES AND HAD XRAY. WAS TOLD NO FRACTURE BUT TODAY BEGAN HAVING SEVERE PAIN AND REDNESS THAT IS SPREADING UP HER FOOT. me1
[2025-03-02 04:03] VITALS: TEMP 98.4; O2SAT 100
[2025-03-02 04:08] VITALS: BP 167/89
== END 2025-03-01 23:52 | disposition home or self-care (01) ==
LOC: ER 21:14
DX: L03.116 Cellulitis of left lower limb (principal); Z23 Encounter for immunization
CPT/HCPCS: 90715